=== PATIENT | female | born 1955 | race Caucasian/White ===

== ENCOUNTER 2018-09-27 13:42 | Observation (INO) | payer OTHER ==
[2018-09-27 13:50] VITALS: BMI 33.0
--- NOTE | 2018-09-27 14:28 | PDOC ---
History of Present Illness - General Chief Complaint: Chest Pain Stated Complaint: HIGH BLOOD PRESSURE Time Seen by Provider: 09/27/18 14:21 - History of Present Illness Initial Comments: 09/27/18 14:25 63 yo F with h/o HTN, Vertigo, Chiari Malformation, DM, GERD who p/w chest pain at rest, Dot[place]. Patient reports acute onset of epigastria and left sided chest pain at rest beginning yesterday evening, radiating to left sided jaw/ear, and left shoulder/arm. Also endorses acute onset of diffuse dull hedache typical of prior headaches. No identifiable triggers or alleviators. Also endorses 2 weeks of intermittent lightheadedness, with blurry vision change, occurring randomly and resolving spontaneously, lasting for seconds to minutes. States that lightheaded feeling is different from vertigo/spinning sensation. Patient denies palpitations, wheezing, orthopena, PND, leg swelling/pain, N/V, F,C, urinary complaints, hematuria, BPR, abdominal pain, diarrhea, weakness, sensory changes. PMHx: as noted above. f/w cardiology Dr. Bergeron. Denies h/o ACs/TN, stent placement, CABG, TIA/CVA, PE/DVT. ROS: as noted Allergies: NKDA PMD: Мария Androne Neurology: Dr. Gunn Past History - Past Medical History Allergies/Adverse Reactions: Allergies Allergy/AdvReac Type Severity Reaction Status Date / Time No Known Drug Allergies Allergy Verified 09/27/18 13:50 Home Medications: Ambulatory Orders Acetaminophen [Tylenol .Regular Strength -] 650 mg PO Q6H PRN #0 tablet Aspirin [ASA -] 81 mg PO HS #0 tab.chew 01/01/14 Levothyroxine [Synthroid -] 100 mcg PO DAILY@0700 #0 tablet 01/01/14 Metoprolol Succinate [Toprol XL -] 50 mg PO DAILY #0 tab.sr.24h 01/01/14 Simvastatin [Zocor -] 40 mg PO HS #0 tablet 01/01/14 metFORMIN HCL [Glucophage -] 500 mg PO BIDAC #0 tablet 01/01/14 Ibuprofen [Motrin -] 800 mg PO TID #6 tablet 03/29/14 Losartan Potassium 100 mg PO ASDIR 09/27/18 Anemia: Yes Asthma: No Cancer: No Cardiac Disorders: No CVA: No COPD: No CHF: No Dementia: (arnold-chiari malformation) Diabetes: Yes (NIDDM) GI Disorders: Yes (internal hemorrhoids) Disorders: No HTN: Yes Hypercholesterolemia: Yes Liver Disease: No Seizures: No Thyroid Disease: Yes (hypothyroid) - Surgical History Abdominal Surgery: Yes (tummy tuck) Appendectomy: No Cardiac Surgery: No Cholecystectomy: No Lung Surgery: No Neurologic Surgery: Yes (chiari malformation repair) Orthopedic Surgery: Yes (neck surgery) - Suicide/Smoking/Psychosocial Hx Smoking Status: No Smoking History: Former smoker Have you smoked in the past 12 months: No Number of Cigarettes Smoked Daily: 0 If you are a former smoker, when did you quit?: 25 years ago Information on smoking cessation initiated: No Hx Alcohol Use: No Drug/Substance Use Hx: No Substance Use Type: None Hx Substance Use Treatment: No Review of Systems - Review of Systems Comments:: 09/27/18 14:26 GENERAL/CONSTITUTIONAL: No fever or chills. No weakness. HEAD, EYES, EARS, NOSE AND THROAT: No change in vision. No ear pain or discharge. No sore throat. CARDIOVASCULAR: No chest pain or shortness of breath RESPIRATORY: No cough, wheezing, or hemoptysis. GASTROINTESTINAL: No nausea, vomiting, diarrhea or constipation. GENITOURINARY: No dysuria, frequency, or change in urination. MUSCULOSKELETAL: No joint or muscle swelling or pain. No neck or back pain. SKIN: No rash NEUROLOGIC: No headache, vertigo, loss of consciousness, or change in strength/ sensation. ENDOCRINE: No increased thirst. No abnormal weight change HEMATOLOGIC/LYMPHATIC: No anemia, easy bleeding, or history of blood clots. ALLERGIC/IMMUNOLOGIC: No hives or skin allergy. *Physical Exam - Vital Signs Last Vital Signs Temp Pulse Resp BP Pulse Ox 97.8 F 74 18 176/96 H 99 09/27/18 13:46 09/27/18 13:46 09/27/18 13:46 09/27/18 13:46 09/27/18 13:46 - Physical Exam Comments: 09/27/18 14:26 GENERAL: Awake, alert, and fully oriented, in no acute distress HEAD: No signs of trauma, normocephalic, atraumatic EYES: PERRLA, EOMI, sclera anicteric, conjunctiva clear ENT: Auricles normal inspection, hearing grossly normal, nares patent, oropharynx clear without exudates. Moist mucosa NECK: Normal ROM, supple, no lymphadenopathy, JVD, or masses LUNGS: No distress, speaks full sentences, clear to auscultation bilaterally HEART: Regular rate and rhythm, normal S1 and S2, no murmurs, rubs or gallops, peripheral pulses normal and equal bilaterally. ABDOMEN: Soft, nontender, normoactive bowel sounds. No guarding, no rebound. No masses EXTREMITIES : Normal inspection, Normal range of motion, no edema. No clubbing or cyanosis. NEUROLOGICAL: Cranial nerves II through XII grossly intact. Normal speech, normal gait, no focal sensorimotor deficits SKIN: Warm, Dry, normal turgor, no rashes or lesions noted Moderate Sedation - Procedure Monitoring Vital Signs: Procedure Monitoring Vital Signs Temperature 97.8 F 09/27/18 13:46 Pulse Rate 74 09/27/18 13:46 Respiratory Rate 18 09/27/18 13:46 Blood Pressure 176/96 H 09/27/18 13:46 O2 Sat by Pulse Oximetry (%) 99 09/27/18 13:46 Heart Score/ECG Review - History History: Moderately suspicious - Electrocardiogram EKG: Non specific repolarization disturbance - Age Age: 45-65 - Risk Factors Risk Factors Heart Score: Yes Hx Hypercholesterolemia, Yes Hx Hypertension, Yes Hx Diabetes, Yes Positive family hx of cardiac disease, Yes Hx Obesity Based on the list above the patient has:: >/=3 risk factors or Hx atherosclerotic disease - Troponin Troponin: </= normal limit - Score Heart Score - Total: 5 ED Treatment Course - LABORATORY CBC & Chemistry Diagram: 09/27/18 15:00 09/27/18 15:00 Medical Decision Making - Medical Decision Making 09/27/18 14:27 63 yo F with h/o HTN, Vertigo, Chiari Malformation, DM, GERD who p/w acute onset of epigastria/left sided chest pain at rest radiating to left sided jaw/ ear, and left shoulder/arm x 1 day. + 2 weeks of intermittent lightheadedness, with blurry vision change. BP 176/96, vitals wnl, AF, A&Ox3. Physical exam unremarkable. Denies palpitations, wheezing, orthopena, PND, leg swelling/pain, N/V, F,C, urinary complaints, hematuria, BPR, abdominal pain, diarrhea, weakness , sensory changes. ACS/MO r/o. 09/27/18 15:34 Ed course: EKG: NSR with absent ALEKSANDR, STD. Normal interval duration and axis. Nml R wave progression. Absent Q waves. 09/27/18 15:50 CBC,CMP: Unremarkable Trop: Neg 09/27/18 15:56 Heart score 5 09/27/18 16:35 ASA 162 mg Patient endorsed to Dr. Liz Zambrano. Admit tele/obs *DC/Admit/Observation/Transfer Diagnosis at time of Disposition: Chest pain at rest, Tachycardia, Heart palpitations - Discharge Dispostion Condition at time of disposition: Stable Decision to Admit order: Yes - Referrals Referrals: Мария Reyes [Primary Care Provider] - - Patient Instructions Printed Discharge Instructions: DI for Atypical Chest Pain Additional Instructions: Please return to the emergency department with any new or worsening symptoms or concerns. Please follow up with your primary care physician within 72 hours. - Post Discharge Activity - Attestations Physician Attestion: 09/27/18 14:27 I attest to the information provided in this note.
--- NOTE | 2018-09-27 15:16 | PDOC ---
Attending Attestation - Resident Resident Name: Quincy Pike - ED Attending Attestation I have performed the following: I have examined & evaluated the patient, The case was reviewed & discussed with the resident, I agree w/resident's findings & plan, Exceptions are as noted - HPI HPI: 09/27/18 15:31 see below - Physicial Exam PE: 09/27/18 15:27 GENERAL: The patient is awake, alert, and fully oriented, Nontoxic - in no acute distress. HEAD: Normocephalic, atraumatic. EYES: extraocular movements intact, sclera anicteric, conjunctiva clear. ENT: Normal voice, Moist mucous membranes. NECK: Normal range of motion, supple LUNGS: Breath sounds equal, clear to auscultation bilaterally. No wheezes, no rhonchi, no rales. HEART: Regular rate and rhythm, normal S1 and S2 without murmur, rub or gallop. ABDOMEN: Soft, nontender, normoactive bowel sounds. No guarding, no rebound. . No CVA tenderness EXTREMITIES: Normal range of motion, no edema. pulses symmetric in upper and lower extremities NEUROLOGICAL: No facial assymetry, Normal speech, PSYCH: Normal mood, normal affect. SKIN: Warm, Dry, normal turgor, - Medical Decision Making 09/27/18 15:27 63-year-old female history of hypertension, vertigo, Chiari malformation status post surgical repair, diabetes, GERD presents with a complaint of chest pain. Patient states that for the past 2 weeks she has felt unwell felt mild lightheadedness, mild headache that felt like ants on her scalp, however last night she began to develop some chest pain and shortness of breath that she describes as pressure-like in the mid epigastrium radiating up to her left jaw and left arm - the pain was intermittent there was associated nausea and dyspnea on exertion. 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 She did take several baby aspirin prior to arrival Patient denies any smoking or illicit or recreational drug use. Differential for this patient's symptoms includes possible metabolic derangements, ACS, anemia Will obtain CBC, CMP, EKG, patient was placed on rn cardiac anticipate observation for rule out ACS Heart Score/ECG Review - ECG Impressions Comment:: 09/27/18 15:30 Twelve-lead EKG was performed and reviewed by me. There is normal sinus rhythm with a normal rate. Rate of 67 The axis is normal. The intervals are normal. There is normal R wave progression There are no ST or T wave abnormalities. Impression: Normal twelve-lead EKG
[2018-09-27 15:19] LABS: BASO % 0.6 % (0-2.0); EOS % 1.8 % (0-4.5); HEMATOCRIT 36.9 % (32.4-45.2); HEMOGLOBIN 12.4 GM/dL (10.7-15.3); LYMPH % 31.3 % (8-40); MCH 26.9 pg (25.7-33.7); MCHC 33.6 g/dl (32.0-36.0); MEAN CELL VOLUME 80.2 fl (80-96); MEAN PLT VOLUME 9.2 fl (7.5-11.1); MONO % 4.6 % (3.8-10.2); NEUT % 61.7 % (42.8-82.8); PLATELET COUNT 239 K/MM3 (134-434); RBC 4.61 M/mm3 (3.60-5.2); WHITE BLOOD COUNT 8.4 K/mm3 (4.0-10.0)
[2018-09-27] MEDS ORDERED: ACETAMINOPHEN 325 MG TABLET (FP) PO ONE (15:26)
[2018-09-27] MEDS ORDERED: ACETAMINOPHEN 325 MG TABLET (FP) ONE (15:28)
[2018-09-27 15:34] LABS: ALK PHOS 94 U/L (45-117); ANION GAP 8 MMOL/L (8-16); BILIRUBIN,TOTAL 0.4 mg/dL (0.2-1); BLOOD UREA NITROGEN 11 mg/dL (7-18); CALCIUM 9.4 mg/dL (8.5-10.1); CHLORIDE 109 mmol/L (98-107); CO2 24 mmol/L (21-32); CREATININE 0.8 mg/dL (0.55-1.3); GLUCOSE,RANDOM 80 mg/dL (74-106); POTASSIUM 4.3 mmol/L (3.5-5.1); SGOT/AST 31 U/L (15-37); SGPT/ALT 32 U/L (13-61); SODIUM 141 mmol/L (136-145); TOT PROT 7.6 g/dl (6.4-8.2)
[2018-09-27 15:36] LABS: LIPASE 180 U/L (73-393)
[2018-09-27] MEDS ORDERED: ASPIRIN 81 MG CHEWABLE TABLETS PO ONE (16:35)
--- NOTE | 2018-09-27 16:41 | PN ---
Teaching Attending Note Name of Resident: Jonathan Crow ATTENDING PHYSICIAN STATEMENT I saw and evaluated the patient. I reviewed the resident's note and discussed the case with the resident. I agree with the resident's findings and plan as documented. SUBJECTIVE: Patient is a 63yo female with PMHx of HTN, vertigo, Arnold Chiari Malformation, DM, hypothyroidism, presented to the ED with worsening chest pain that started last night. OBJECTIVE: Initial Vital Signs Temp Pulse Resp BP Pulse Ox 97.8 F 74 18 176/96 H 99 09/27/18 13:46 09/27/18 13:46 09/27/18 13:46 09/27/18 13:46 09/27/18 13:46 Vital Signs Temperature 98.6 F 09/27/18 16:30 Pulse Rate 86 09/27/18 16:30 Respiratory Rate 17 09/27/18 16:30 Blood Pressure 136/80 09/27/18 16:30 O2 Sat by Pulse Oximetry (%) 100 09/27/18 16:30 GENERAL: The patient is awake, alert, and fully oriented, in no acute distress. HEAD: Normocephalic, atraumatic. EYES: extraocular movements intact, sclera anicteric, conjunctiva clear. ENT: Moist mucous membranes. NECK: Normal range of motion, supple LUNGS: Breath sounds equal, clear to auscultation bilaterally. No wheezes, no rhonchi, no rales. HEART: Regular rate and rhythm, normal S1 and S2 without murmur, rub or gallop. ABDOMEN: Soft, nontender, normoactive bowel sounds. No guarding, no rebound. . No CVA tenderness EXTREMITIES: Normal range of motion, no edema. pulses are positive . NEUROLOGICAL: cn 2-12 grossly intact , Normal speech, PSYCH: Normal mood, normal affect. SKIN: Warm, Dry, normal turgor. CBCD WBC 8.4 K/mm3 (4.0-10.0) 09/27/18 15:00 RBC 4.61 M/mm3 (3.60-5.2) 09/27/18 15:00 Hgb 12.4 GM/dL (10.7-15.3) 09/27/18 15:00 Hct 36.9 % (32.4-45.2) 09/27/18 15:00 MCV 80.2 fl (80-96) 09/27/18 15:00 MCHC 33.6 g/dl (32.0-36.0) 09/27/18 15:00 RDW 15.0 % (11.6-15.6) 09/27/18 15:00 Plt Count 239 K/MM3 (134-434) 09/27/18 15:00 MPV 9.2 fl (7.5-11.1) 09/27/18 15:00 CMP Sodium 141 mmol/L (136-145) 09/27/18 15:00 Potassium 4.3 mmol/L (3.5-5.1) 09/27/18 15:00 Chloride 109 mmol/L (98-107) H 09/27/18 15:00 Carbon Dioxide 24 mmol/L (21-32) 09/27/18 15:00 Anion Gap 8 MMOL/L (8-16) 09/27/18 15:00 BUN 11 mg/dL (7-18) 09/27/18 15:00 Creatinine 0.8 mg/dL (0.55-1.3) 09/27/18 15:00 Creat Clearance w eGFR 72.92 (>60) 09/27/18 15:00 Random Glucose 80 mg/dL (74-106) 09/27/18 15:00 Calcium 9.4 mg/dL (8.5-10.1) 09/27/18 15:00 Total Bilirubin 0.4 mg/dL (0.2-1) 09/27/18 15:00 AST 31 U/L (15-37) 09/27/18 15:00 ALT 32 U/L (13-61) 09/27/18 15:00 Alkaline Phosphatase 94 U/L (45-117) 09/27/18 15:00 Total Protein 7.6 g/dl (6.4-8.2) 09/27/18 15:00 Albumin 4.0 g/dl (3.4-5.0) 09/27/18 15:00 CARDIAC ENZYMES Creatine Kinase 66 U/L (26-192) 09/27/18 15:00 Troponin I < 0.02 ng/ml (0.00-0.05) 09/27/18 15:00 Home Medications Medication Instructions Recorded Acetaminophen [Tylenol .Regular 650 mg PO Q6H PRN #0 tablet 01/01/14 Strength -] Aspirin [ASA -] 81 mg PO HS #0 tab.chew 01/01/14 Levothyroxine [Synthroid -] 100 mcg PO DAILY@0700 #0 tablet 01/01/14 Metoprolol Succinate [Toprol XL -] 50 mg PO DAILY #0 tab.sr.24h 01/01/14 Simvastatin [Zocor -] 40 mg PO HS #0 tablet 01/01/14 metFORMIN HCL [Glucophage -] 500 mg PO BIDAC #0 tablet 01/01/14 Ibuprofen [Motrin -] 800 mg PO TID #6 tablet 03/29/14 Losartan Potassium 100 mg PO ASDIR 09/27/18 ASSESSMENT AND PLAN: Patient is a 63yo female with PMHx of HTN, Arnold Chiari Malformation, vertigo, DM, hypothyroidism presented to the ED with complaints of L sided chest pain with radiation to the arm and jaw, associated with a 2 week history of blurred vision and dizziness #Acute L sided Chest Pain r/o ACS; EKG was normal, trop x1 negative ,trend troponins with repeat EKGS tylenol for headache PRN for pain, Dr. Roger consulted, tele monitoring, monitor vitals #HTN continue home meds, monitor #Arnold-chiari Malformation s/p surgery (2005); Dr. Vidal is patients neuro; consulted as per patient request given blurred vision and headaches (likely related to elevated BP) #DM holding patients metformin; ISS, BGMS ACHS #Hypothyroidism:f/u TSH and free t4, continue synthroid 100mcg daily DVT PX: scds, lovenox
[2018-09-27] MEDS ORDERED: ASPIRIN 81 MG CHEWABLE TABLETS ONE ×2 (16:44→19:36)
[2018-09-27] MEDS ORDERED: SODIUM CHLORIDE 0.45% 1,000 ML IV SCH (17:15)
--- NOTE | 2018-09-27 17:17 | HP ---
CHIEF COMPLAINT: chest pain at rest PCP:Dr. Reyes, Cardio: Dr. Roger, Neuro: Dr. Vidal HISTORY OF PRESENT ILLNESS: 63 y/o female with PMH of HTN, vertigo, Arnold Chiari Malformation, DM, hypothyroidism, presented to the ED with worsening chest pain that started last night. Of note, patient has been having for the past 2 weeks blurred vision and associated lightheadedness/headaches, however, her chest pain started yesterday. She was laying in bed when the pain started it she said it was midsternal with radiation to the left arm and up to the jaw- at its worse was a 10/10. She has never had this before- it wasn't associated with exertion or positional. She had taken her pressures multiple times with her systolics being in the 180's and diastolics being in the 100's. she took an extra metoprolol thinking that would resolve her symptoms but it did not. she at first went to urgent care then was sent here. she denies any recent illlnesses, no nausea/ vomiting/fevers or chills. she follows up with dr. roger for cardiology- states her last echo and stress test were one year ago and were both normal.patient states also today she was very constipated and was straining very hard and almost passed out- she has never had a syncopal episode in the past, ER course was notable for: (1)BP on admission was 176/96 (2)trop neg x1; EKG shows NSR; no ST changes, no q waves; normal interval rate 67 (3)given asa x1 and tylenol Recent Travel: none PAST MEDICAL HISTORY: see above PAST SURGICAL HISTORY: chiari surgeyr 2005; tummy tuck; cervical disc surgery 20 years ago Social History: Smoking:quit 30 years ago Alcohol:denies Drugs: denies Family History:significant cardiac history: 3 of her older sisters have had stents, SC's, open heart surgeries in their late 60's-early 70s Allergies No Known Drug Allergies Allergy (Verified 09/27/18 13:50) HOME MEDICATIONS: Home Medications Medication Instructions Recorded Acetaminophen [Tylenol .Regular 650 mg PO Q6H PRN #0 tablet 01/01/14 Strength -] Aspirin [ASA -] 81 mg PO HS #0 tab.chew 01/01/14 Levothyroxine [Synthroid -] 100 mcg PO DAILY@0700 #0 tablet 01/01/14 Metoprolol Succinate [Toprol XL -] 50 mg PO DAILY #0 tab.sr.24h 01/01/14 Simvastatin [Zocor -] 40 mg PO HS #0 tablet 01/01/14 metFORMIN HCL [Glucophage -] 500 mg PO BIDAC #0 tablet 01/01/14 Ibuprofen [Motrin -] 800 mg PO TID #6 tablet 03/29/14 Losartan Potassium 100 mg PO ASDIR 09/27/18 REVIEW OF SYSTEMS CONSTITUTIONAL: Absent: fever, chills, diaphoresis, generalized weakness, malaise, loss of appetite, weight change HEENT: Present: visual changes Absent: rhinorrhea, nasal congestion, throat pain, throat swelling, difficulty swallowing, mouth swelling, ear pain, eye pain, CARDIOVASCULAR: Present:chest pain, lightheadedness Absent: syncope, palpitations, irregular heart rate, peripheral edema RESPIRATORY: Absent: cough, shortness of breath, dyspnea with exertion, orthopnea, wheezing, stridor, hemoptysis GASTROINTESTINAL: Absent: abdominal pain, abdominal distension, nausea, vomiting, diarrhea, constipation, melena, hematochezia GENITOURINARY: Absent: dysuria, frequency, urgency, hesitancy, hematuria, flank pain, genital pain MUSCULOSKELETAL: Absent: myalgia, arthralgia, joint swelling, back pain, neck pain SKIN: Absent: rash, itching, pallor HEMATOLOGIC/IMMUNOLOGIC: Absent: easy bleeding, easy bruising, lymphadenopathy, frequent infections ENDOCRINE: Absent: unexplained weight gain, unexplained weight loss, heat intolerance, cold intolerance NEUROLOGIC: Present: headache Absent:focal weakness or paresthesias, dizziness, unsteady gait, seizure, mental status changes, bladder or bowel incontinence PSYCHIATRIC: Absent: anxiety, depression, suicidal or homicidal ideation, hallucinations. PHYSICAL EXAMINATION Vital Signs - 24 hr 09/27/18 09/27/18 13:46 16:30 Temperature 97.8 F 98.6 F Pulse Rate 74 Pulse Rate [ 86 Apical] Respiratory 18 17 Rate Blood Pressure 176/96 H Blood Pressure 136/80 [Right Arm] O2 Sat by Pulse 99 100 Oximetry (%) GENERAL: Awake, alert, and fully oriented, in no acute distress. EYES: PEERLA; EOMI; no scleral icterus NECK:no JVD; no lymphadenopathy. LUNGS: CTA B/L; no rales, rhonchi or wheezing. HEART: Regular rate and rhythm, normal S1 and S2 without murmur, rub or gallop. ABDOMEN:soft; non-tender; non-distended +BS in all 4 quadrants MUSCULOSKELETAL: Normal range of motion at all joints. No bony deformities or tenderness. No CVA tenderness. EXTREMITIES: warm; well-perfused; no clubbing/cyanosis or edema NEUROLOGICAL: Cranial nerves II-XII intact. Normal speech. strength 5/5UE (b/l) , 5/5 LE (b/l) sensation intact throughout PSYCHIATRIC: Cooperative. Good eye contact. Appropriate mood and affect. SKIN: Warm, dry, normal turgor, no rashes or lesions noted, normal capillary refill. Laboratory Results - last 24 hr 09/27/18 09/27/18 09/27/18 15:00 15:00 15:00 WBC 8.4 RBC 4.61 Hgb 12.4 Hct 36.9 MCV 80.2 MCH 26.9 MCHC 33.6 RDW 15.0 Plt Count 239 MPV 9.2 Absolute Neuts (auto) 5.2 Neutrophils % 61.7 Lymphocytes % 31.3 Monocytes % 4.6 Eosinophils % 1.8 Basophils % 0.6 Nucleated RBC % 0 Sodium 141 Potassium 4.3 Chloride 109 H Carbon Dioxide 24 Anion Gap 8 BUN 11 Creatinine 0.8 Creat Clearance w eGFR 72.92 Random Glucose 80 Calcium 9.4 Total Bilirubin 0.4 AST 31 ALT 32 Alkaline Phosphatase 94 Creatine Kinase 66 Troponin I < 0.02 Total Protein 7.6 Albumin 4.0 Lipase 180 ASSESSMENT/PLAN: 63 y/o female with PMH of HTN, Arnold Chiari Malformation, vertigo, DM, hypothyroidism presented to the ED with complaints of L sided chest pain with radiation to the arm and jaw, associated with a 2 week history of blurred vision and dizziness #L sided Chest Pain r/o ACS EKG was normal with one negative trop thus far -trend troponins with repeat EKGS -tylenol PRN for pain -Dr. Roger consulted -tele monitoring -monitor vitals and hemodynamics #HTN patient states her pressures have been high despite taking meds -currently on troprol Xl 50 and Cozaar 100 -? need to increase meds -Dr. Mascitelli consulted #Chiari Malformation surgery was in 2005 -Dr. Vidal is patients neuro; consulted as per patient request given blurred vision and headaches (likely related to elevated BP) #DM holding patients metformin -ISS -BGMS ACHS #Hypothyroidism -f/u TSH and free t4 c/w synthroid 100mcg daily F/E/N 07/15 NS @75mls monitor electrolytes sodium controlled diet DVT PPX: lovenox 40 SQ daily Problem List - Problem (1) HTN (hypertension) Code(s): I10 - ESSENTIAL (PRIMARY) HYPERTENSION (2) Diabetes Code(s): E11.9 - TYPE 2 DIABETES MELLITUS WITHOUT COMPLICATIONS (3) Hypothyroidism Code(s): E03.9 - HYPOTHYROIDISM, UNSPECIFIED (4) Chiari malformation Code(s): AIZ0068 - (5) Chest pain at rest Code(s): R07.9 - CHEST PAIN, UNSPECIFIED Visit type - Emergency Visit Emergency Visit: Yes Care time: The patient presented to the Emergency Department on the above date and was hospitalized for further evaluation of their emergent condition. - New Patient This patient is new to me today: Yes Date on this admission: 09/27/18 - Critical Care Critical Care patient: No
[2018-09-27] MEDS ORDERED: ACETAMINOPHEN 325 MG TABLET (FP) PO PRN (17:36)
[2018-09-27] MEDS ORDERED: LOSARTAN POTASSIUM 50 MG TABLET (FP) ONE (18:04)
[2018-09-27] MEDS: LOSARTAN POTASSIUM 50 MG TABLET (FP) PO SCH (18:07)
[2018-09-27] MEDS ORDERED: IBUPROFEN 400 MG TABLET (FP) PO PRN ×2 (18:17→18:19)
[2018-09-27] MEDS ORDERED: IBUPROFEN 400 MG TABLET (FP) PO ONE (18:42)
[2018-09-27] MEDS ORDERED: ATORVASTATIN CA 10 MG TABLET (FP) ONE (19:36)
[2018-09-27] MEDS: ATORVASTATIN CA 20 MG TABLET (FP) PO SCH (21:20)
[2018-09-27] MEDS: ASPIRIN 81 MG CHEWABLE TABLETS PO SCH (21:20)
[2018-09-27] MEDS: INSULIN SLIDING SCALE (NOVOLOG) 1 VIAL SQ SCH (21:25)
[2018-09-27] MEDS ORDERED: GABAPENTIN 100 MG CAPSULE (FP) ONE (23:01)
[2018-09-27] MEDS: GABAPENTIN 300 MG CAPSULE (FP) PO SCH (23:20)
[2018-09-28 05:46] LABS: EOS % 2.5 % (0-4.5); HEMATOCRIT 32.5 % (32.4-45.2); HEMOGLOBIN 10.8 GM/dL (10.7-15.3); LYMPH % 43.6 % (8-40); MCH 26.4 pg (25.7-33.7); MCHC 33.3 g/dl (32.0-36.0); MEAN CELL VOLUME 79.1 fl (80-96); MEAN PLT VOLUME 8.6 fl (7.5-11.1); MONO % 7.1 % (3.8-10.2); NEUT % 45.8 % (42.8-82.8); PLATELET COUNT 204 K/MM3 (134-434); RBC 4.12 M/mm3 (3.60-5.2); RDW 15.4 % (11.6-15.6); WHITE BLOOD COUNT 6.5 K/mm3 (4.0-10.0)
[2018-09-28] MEDS ORDERED: LEVOTHYROXINE NA 25 MCG TABLET (FP) ONE (05:58)
[2018-09-28 06:03] LABS: ALBUMIN 3.3 g/dl (3.4-5.0); ALK PHOS 78 U/L (45-117); ANION GAP 5 MMOL/L (8-16); BILIRUBIN,TOTAL 0.4 mg/dL (0.2-1); BLOOD UREA NITROGEN 18 mg/dL (7-18); CALCIUM 8.5 mg/dL (8.5-10.1); CHLORIDE 111 mmol/L (98-107); CO2 25 mmol/L (21-32); CREATININE 0.9 mg/dL (0.55-1.3); GLUCOSE,RANDOM 90 mg/dL (74-106); MAGNESIUM 1.7 mg/dL (1.8-2.4); PHOSPHOROUS 4.1 mg/dL (2.5-4.9); POTASSIUM 4.2 mmol/L (3.5-5.1); SGOT/AST 17 U/L (15-37); SGPT/ALT 26 U/L (13-61); SODIUM 141 mmol/L (136-145); TOT PROT 6.3 g/dl (6.4-8.2)
[2018-09-28] MEDS ORDERED: MAGNESIUM OXIDE 400 MG TABLET (FP) PO ONE (06:08)
[2018-09-28] MEDS ORDERED: MAGNESIUM OXIDE 400 MG TABLET (FP) ONE (06:14)
[2018-09-28] MEDS: INSULIN SLIDING SCALE (NOVOLOG) 1 VIAL SQ SCH ×4 (06:25→21:40)
[2018-09-28] MEDS: LEVOTHYROXINE NA 100 MCG TABLET (FP) PO SCH (06:25)
--- NOTE | 2018-09-28 09:10 | CON.CARD ---
Consult Consult Specialty:: Cardiology - History of Present Illness History of Present Illness: 63 y/o female with PMH of HTN, vertigo, Arnold Chiari Malformation, DM, hypothyroidism, presented to the ED with worsening chest pain that started last night. Of note, patient has been having for the past 2 weeks blurred vision and associated lightheadedness/headaches, however, her chest pain started yesterday. She was laying in bed when the pain started it she said it was midsternal with radiation to the left arm and up to the jaw- at its worse was a 10/10. She has never had this before- it wasn't associated with exertion or positional. She had taken her pressures multiple times with her systolics being in the 180's and diastolics being in the 100's. she took an extra metoprolol thinking that would resolve her symptoms but it did not. she at first went to urgent care then was sent here. she denies any recent illlnesses, no nausea/ vomiting/fevers or chills. she follows up with dr. longo for cardiology- states her last echo and stress test were one year ago and were both normal.patient states also today she was very constipated and was straining very hard and almost passed out- she has never had a syncopal episode in the past, PMH Major events surgery for Chiari malformation 2006 Ongoing medical problems vertigo ADD overweight anxiety chronic constipation - History Source History Provided By: Patient, Medical Record - Alcohol/Substance Use Hx Alcohol Use: No - Smoking History Smoking history: Former smoker Have you smoked in the past 12 months: No Aproximately how many cigarettes per day: 0 If you are a former smoker, when did you quit?: 25 years ago Home Medications - Allergies Allergies/Adverse Reactions: Allergies Allergy/AdvReac Type Severity Reaction Status Date / Time No Known Drug Allergies Allergy Verified 09/27/18 13:50 - Home Medications Home Medications: Ambulatory Orders Acetaminophen [Tylenol .Regular Strength -] 650 mg PO Q6H PRN #0 tablet Aspirin [ASA -] 81 mg PO HS #0 tab.chew 01/01/14 Levothyroxine [Synthroid -] 100 mcg PO DAILY@0700 #0 tablet 01/01/14 Metoprolol Succinate [Toprol XL -] 50 mg PO DAILY #0 tab.sr.24h 01/01/14 Simvastatin [Zocor -] 40 mg PO HS #0 tablet 01/01/14 metFORMIN HCL [Glucophage -] 500 mg PO BIDAC #0 tablet 01/01/14 Gabapentin [Neurontin] 300 mg PO BID 09/27/18 Losartan Potassium 100 mg PO DAILY 09/27/18 Ibuprofen 800 mg PO TID PRN 09/28/18 Review of Systems - Review of Systems Constitutional: reports: No Symptoms Eyes: reports: No Symptoms HENT: reports: No Symptoms Neck: reports: No Symptoms Cardiovascular: reports: Chest Pain Gastrointestinal: reports: No Symptoms Genitourinary: reports: No Symptoms Breasts: reports: No Symptoms Reported Musculoskeletal: reports: No Symptoms Integumentary: reports: No Symptoms Neurological: reports: No Symptoms Endocrine: reports: No Symptoms Hematology/Lymphatic: reports: No Symptoms Psychiatric: reports: No Symptoms Vital Signs: Vital Signs Temperature 98.1 F 09/28/18 06:22 Pulse Rate 61 09/28/18 06:22 Respiratory Rate 18 09/28/18 06:22 Blood Pressure 142/76 09/28/18 06:22 O2 Sat by Pulse Oximetry (%) 98 09/28/18 06:22 Constitutional: Yes: Well Nourished, No Distress, Calm Eyes: Yes: WNL, Conjunctiva Clear, EOM Intact HENT: Yes: WNL, Atraumatic, Normocephalic Neck: Yes: WNL, Supple, Trachea Midline Respiratory: Yes: WNL, Regular, CTA Bilaterally Gastrointestinal: Yes: WNL, Normal Bowel Sounds Renal/: Yes: WNL Cardiovascular: Yes: WNL, Regular Rate and Rhythm Musculoskeletal: Yes: WNL Extremities: Yes: WNL Integumentary: Yes: WNL Neurological: Yes: WNL, Alert, Oriented ...Motor Strength: WNL Psychiatric: Yes: WNL, Alert, Oriented - Other Data Labs, Other Data: CBC, BMP 09/28/18 05:10 09/28/18 05:10 Troponin, BNP 09/27/18 09/27/18 09/28/18 15:00 21:30 03:20 Troponin I < 0.02 < 0.02 < 0.02 Troponin, BNP 09/27/18 09/27/18 09/28/18 15:00 21:30 03:20 Troponin I < 0.02 < 0.02 < 0.02 Imaging - Results Chest X-ray: Image Reviewed (no i/e) EKG: Image Reviewed (sr wnl) Problem List - Problems (1) Chest pain at rest Code(s): R07.9 - CHEST PAIN, UNSPECIFIED (2) Chiari malformation Code(s): CED8599 - (3) Diabetes Code(s): E11.9 - TYPE 2 DIABETES MELLITUS WITHOUT COMPLICATIONS (4) HTN (hypertension) Code(s): I10 - ESSENTIAL (PRIMARY) HYPERTENSION (5) Heart palpitations Code(s): R00.2 - PALPITATIONS (6) Hypothyroidism Code(s): E03.9 - HYPOTHYROIDISM, UNSPECIFIED (7) Pain Code(s): R52 - PAIN, UNSPECIFIED (8) Tachycardia Code(s): R00.0 - TACHYCARDIA, UNSPECIFIED (9) Acid reflux Code(s): K21.9 - GASTRO-ESOPHAGEAL REFLUX DISEASE WITHOUT ESOPHAGITIS (10) Esophageal spasm Code(s): K22.4 - DYSKINESIA OF ESOPHAGUS Assessment/Plan 63 y/o female with PMH of HTN, vertigo, Arnold Chiari Malformation, DM, hypothyroidism, presented to the ED with worsening chest pain that started last night. ekg wnl ce neg plan telemetry echo stress test when stable check lipids dvt plx
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
[2018-09-28] MEDS ORDERED: DICLOFENAC SODIUM 75 MG TABLET.DR PO SCH (10:00)
[2018-09-28] MEDS: GABAPENTIN 300 MG CAPSULE (FP) PO SCH ×2 (11:54→21:41)
[2018-09-28] MEDS: LOSARTAN POTASSIUM 50 MG TABLET (FP) PO SCH (11:54)
[2018-09-28] MEDS: ENOXAPARIN NA (PORCINE) 40 MG/0.4 ML DISP.SYRIN SQ SCH (12:04)
--- NOTE | 2018-09-28 14:37 | PN ---
Physical Exam: SUBJECTIVE: Patient seen and examined at bedside- no acute events overnight patient states she is feeling better her chest pain is improving; denies SOB/N/ V fevers or chills OBJECTIVE: Vital Signs Period Temp Pulse Resp BP Sys/Wiggins Pulse Ox Last 24 Hr 97.3 F-98.6 F 60-86 16-18 114-142/47-80 95-100 GENERAL: The patient is awake, alert, and fully oriented, in no acute distress. EYES: PEERLA; EOMI; no scleral icterus NECK: no JVD; no lymphadenopathy. LUNGS: CTA B/L; no rales, rhonchi or wheezing. HEART: Regular rate and rhythm, S1, S2 without murmur, rub or gallop. ABDOMEN: Soft, nontender, nondistended, normoactive bowel sounds, no guarding, no rebound, no hepatosplenomegaly, no masses. EXTREMITIES: 2+ pulses, warm, well-perfused, no edema. PSYCH: Normal mood, normal affect. SKIN: Warm, dry, normal turgor, no rashes or lesions noted Laboratory Results - last 24 hr 09/27/18 09/27/18 09/27/18 15:00 15:00 15:00 WBC 8.4 RBC 4.61 Hgb 12.4 Hct 36.9 MCV 80.2 MCH 26.9 MCHC 33.6 RDW 15.0 Plt Count 239 MPV 9.2 Absolute Neuts (auto) 5.2 Neutrophils % 61.7 Lymphocytes % 31.3 Monocytes % 4.6 Eosinophils % 1.8 Basophils % 0.6 Nucleated RBC % 0 Sodium 141 Potassium 4.3 Chloride 109 H Carbon Dioxide 24 Anion Gap 8 BUN 11 Creatinine 0.8 Creat Clearance w eGFR 72.92 POC Glucometer Random Glucose 80 Calcium 9.4 Phosphorus Magnesium Total Bilirubin 0.4 AST 31 ALT 32 Alkaline Phosphatase 94 Creatine Kinase 66 Troponin I < 0.02 C-Reactive Protein Total Protein 7.6 Albumin 4.0 Lipase 180 TSH Free T4 09/27/18 09/27/18 09/28/18 21:21 21:30 03:20 WBC RBC Hgb Hct MCV MCH MCHC RDW Plt Count MPV Absolute Neuts (auto) Neutrophils % Lymphocytes % Monocytes % Eosinophils % Basophils % Nucleated RBC % Sodium Potassium Chloride Carbon Dioxide Anion Gap BUN Creatinine Creat Clearance w eGFR POC Glucometer 94 Random Glucose Calcium Phosphorus Magnesium Total Bilirubin AST ALT Alkaline Phosphatase Creatine Kinase Troponin I < 0.02 < 0.02 C-Reactive Protein Total Protein Albumin Lipase TSH Free T4 09/28/18 09/28/18 09/28/18 05:10 05:10 05:10 WBC 6.5 RBC 4.12 Hgb 10.8 Hct 32.5 MCV 79.1 L MCH 26.4 MCHC 33.3 RDW 15.4 Plt Count 204 MPV 8.6 Absolute Neuts (auto) 3.0 Neutrophils % 45.8 D Lymphocytes % 43.6 H D Monocytes % 7.1 Eosinophils % 2.5 Basophils % 1.0 Nucleated RBC % 0 Sodium 141 Potassium 4.2 Chloride 111 H Carbon Dioxide 25 Anion Gap 5 L BUN 18 Creatinine 0.9 Creat Clearance w eGFR 63.65 POC Glucometer Random Glucose 90 Calcium 8.5 Phosphorus 4.1 Magnesium 1.7 L Total Bilirubin 0.4 AST 17 ALT 26 Alkaline Phosphatase 78 Creatine Kinase Troponin I C-Reactive Protein 0.5 H Total Protein 6.3 L Albumin 3.3 L Lipase TSH 2.31 Free T4 0.85 09/28/18 09/28/18 06:22 11:48 WBC RBC Hgb Hct MCV MCH MCHC RDW Plt Count MPV Absolute Neuts (auto) Neutrophils % Lymphocytes % Monocytes % Eosinophils % Basophils % Nucleated RBC % Sodium Potassium Chloride Carbon Dioxide Anion Gap BUN Creatinine Creat Clearance w eGFR POC Glucometer 86 82 Random Glucose Calcium Phosphorus Magnesium Total Bilirubin AST ALT Alkaline Phosphatase Creatine Kinase Troponin I C-Reactive Protein Total Protein Albumin Lipase TSH Free T4 Active Medications Generic Name Dose Route Start Last Admin Trade Name Freq PRN Reason Stop Dose Admin Aspirin 81 mg 09/27/18 22:00 09/27/18 21:20 Asa - PO 81 mg HS RONALDO Administration Atorvastatin Calcium 20 mg 09/27/18 22:00 09/27/18 21:20 Lipitor - PO 20 mg HS RONALDO Administration Diclofenac Sodium 75 mg 09/28/18 10:00 09/28/18 12:05 Voltaren - PO Not Given BID RONALDO Enoxaparin Sodium 40 mg 09/28/18 10:00 09/28/18 12:04 Lovenox - SQ 40 mg DAILY RONALDO Administration Gabapentin 300 mg 09/27/18 23:00 09/28/18 11:54 Neurontin - PO 300 mg BID RONALDO Administration Sodium Chloride 1,000 mls @ 75 mls/hr 09/27/18 17:15 09/27/18 19:35 1/2 Normal Saline IV 75 mls/hr ASDIR RONALDO Administration Insulin Aspart 1 vial 09/27/18 22:00 09/28/18 11:55 Novolog Vial Sliding Scale - SQ Not Given ACHS RONALDO Protocol Levothyroxine Sodium 100 mcg 09/28/18 07:00 09/28/18 06:25 Synthroid - PO 100 mcg DAILY@0700 RONALDO Administration Losartan Potassium 100 mg 09/27/18 17:30 09/28/18 11:54 Cozaar - PO 100 mg DAILY RONALDO Administration Metoprolol Succinate 50 mg 09/28/18 10:00 09/28/18 11:54 Toprol Xl - PO 50 mg DAILY RONALDO Administration ASSESSMENT/PLAN: 63 y/o female with PMH of HTN, Arnold Chiari Malformation, vertigo, DM, hypothyroidism presented to the ED with complaints of L sided chest pain with radiation to the arm and jaw, associated with a 2 week history of blurred vision and dizziness #L sided Chest Pain r/o ACS trops negative times theree -tylenol PRN for pain -Dr. Roger consulted; Dr alves saw patient this AM; going for stress test tomorrow AM -tele monitoring -monitor vitals and hemodynamics #HTN patient states her pressures have been high despite taking meds -currently on troprol Xl 50 and Cozaar 100 -Dr. Roger consulted #Chiari Malformation surgery was in 2005 -Dr Vidal consulted -head/neck CT ordered #DM holding patients metformin -ISS -BGMS ACHS #Hypothyroidism -TSH and free t4 wnl c/w synthroid 100mcg daily F/E/N 1/2 NS @75mls monitor electrolytes sodium controlled diet Problem List - Problems (1) HTN (hypertension) Code(s): I10 - ESSENTIAL (PRIMARY) HYPERTENSION (2) Diabetes Code(s): E11.9 - TYPE 2 DIABETES MELLITUS WITHOUT COMPLICATIONS (3) Hypothyroidism Code(s): E03.9 - HYPOTHYROIDISM, UNSPECIFIED (4) Chiari malformation Code(s): JIN4414 - (5) Chest pain at rest Code(s): R07.9 - CHEST PAIN, UNSPECIFIED Visit type - Emergency Visit Emergency Visit: Yes ED Registration Date: 09/27/18 Care time: The patient presented to the Emergency Department on the above date and was hospitalized for further evaluation of their emergent condition. - New Patient This patient is new to me today: No - Critical Care Critical Care patient: No
--- NOTE | 2018-09-28 20:23 | PN ---
Teaching Attending Note Name of Resident: Liz Zambrano ATTENDING PHYSICIAN STATEMENT I saw and evaluated the patient. I reviewed the resident's note and discussed the case with the resident. I agree with the resident's findings and plan as documented. SUBJECTIVE: Patient has no further chest pain. going for stress test. OBJECTIVE: Vital Signs Temperature 98.5 F 09/28/18 17:34 Pulse Rate 69 09/28/18 17:34 Respiratory Rate 20 09/28/18 17:34 Blood Pressure 140/70 09/28/18 17:34 O2 Sat by Pulse Oximetry (%) 100 09/28/18 14:24 GENERAL: The patient is awake, alert, and fully oriented, in no acute distress. HEAD: Normocephalic, atraumatic. EYES: extraocular movements intact, sclera anicteric, conjunctiva clear. ENT: Moist mucous membranes. NECK: Normal range of motion, supple LUNGS: Breath sounds equal, clear to auscultation bilaterally. No wheezes, no rhonchi, no rales. HEART: Regular rate and rhythm, normal S1 and S2 without murmur, rub or gallop. ABDOMEN: Soft, nontender, normoactive bowel sounds. No guarding, no rebound. . No CVA tenderness EXTREMITIES: Normal range of motion, no edema. pulses are positive . NEUROLOGICAL: cn 2-12 grossly intact , Normal speech, PSYCH: Normal mood, normal affect. SKIN: Warm, Dry, normal turgor. CBCD WBC 6.5 K/mm3 (4.0-10.0) 09/28/18 05:10 RBC 4.12 M/mm3 (3.60-5.2) 09/28/18 05:10 Hgb 10.8 GM/dL (10.7-15.3) 09/28/18 05:10 Hct 32.5 % (32.4-45.2) 09/28/18 05:10 MCV 79.1 fl (80-96) L 09/28/18 05:10 MCHC 33.3 g/dl (32.0-36.0) 09/28/18 05:10 RDW 15.4 % (11.6-15.6) 09/28/18 05:10 Plt Count 204 K/MM3 (134-434) 09/28/18 05:10 MPV 8.6 fl (7.5-11.1) 09/28/18 05:10 CMP Sodium 141 mmol/L (136-145) 09/28/18 05:10 Potassium 4.2 mmol/L (3.5-5.1) 09/28/18 05:10 Chloride 111 mmol/L (98-107) H 09/28/18 05:10 Carbon Dioxide 25 mmol/L (21-32) 09/28/18 05:10 Anion Gap 5 MMOL/L (8-16) L 09/28/18 05:10 BUN 18 mg/dL (7-18) 09/28/18 05:10 Creatinine 0.9 mg/dL (0.55-1.3) 09/28/18 05:10 Creat Clearance w eGFR 63.65 (>60) 09/28/18 05:10 Random Glucose 90 mg/dL (74-106) 09/28/18 05:10 Calcium 8.5 mg/dL (8.5-10.1) 09/28/18 05:10 Total Bilirubin 0.4 mg/dL (0.2-1) 09/28/18 05:10 AST 17 U/L (15-37) 09/28/18 05:10 ALT 26 U/L (13-61) 09/28/18 05:10 Alkaline Phosphatase 78 U/L (45-117) 09/28/18 05:10 Total Protein 6.3 g/dl (6.4-8.2) L 09/28/18 05:10 Albumin 3.3 g/dl (3.4-5.0) L 09/28/18 05:10 CARDIAC ENZYMES Creatine Kinase 66 U/L (26-192) 09/27/18 15:00 Troponin I < 0.02 ng/ml (0.00-0.05) 09/28/18 03:20 Current Medications Generic Name Dose Route Start Last Admin Trade Name Freq PRN Reason Stop Dose Admin Aspirin 81 mg 09/27/18 22:00 09/27/18 21:20 Asa - PO 81 mg HS RONALDO Administration Atorvastatin Calcium 20 mg 09/27/18 22:00 09/27/18 21:20 Lipitor - PO 20 mg HS RONALDO Administration Enoxaparin Sodium 40 mg 09/28/18 10:00 09/28/18 12:04 Lovenox - SQ 40 mg DAILY RONALDO Administration Gabapentin 300 mg 09/27/18 23:00 09/28/18 11:54 Neurontin - PO 300 mg BID RONALDO Administration Sodium Chloride 1,000 mls @ 75 mls/hr 09/27/18 17:15 09/27/18 19:35 1/2 Normal Saline IV 75 mls/hr ASDIR RONALDO Administration Insulin Aspart 1 vial 09/27/18 22:00 09/28/18 16:23 Novolog Vial Sliding Scale - SQ Not Given ACHS [facility] Protocol Levothyroxine Sodium 100 mcg 09/28/18 07:00 09/28/18 06:25 Synthroid - PO 100 mcg DAILY@0700 RONALDO Administration Losartan Potassium 100 mg 09/27/18 17:30 09/28/18 11:54 Cozaar - PO 100 mg DAILY RONALDO Administration Metoprolol Succinate 50 mg 09/28/18 10:00 09/28/18 11:54 Toprol Xl - PO 50 mg DAILY RONALDO Administration Home Medications Medication Instructions Recorded Acetaminophen [Tylenol .Regular 650 mg PO Q6H PRN #0 tablet 01/01/14 Strength -] Aspirin [ASA -] 81 mg PO HS #0 tab.chew 01/01/14 Levothyroxine [Synthroid -] 100 mcg PO DAILY@0700 #0 tablet 01/01/14 Metoprolol Succinate [Toprol XL -] 50 mg PO DAILY #0 tab.sr.24h 01/01/14 Simvastatin [Zocor -] 40 mg PO HS #0 tablet 01/01/14 metFORMIN HCL [Glucophage -] 500 mg PO BIDAC #0 tablet 01/01/14 Gabapentin [Neurontin] 300 mg PO BID 09/27/18 Losartan Potassium 100 mg PO DAILY 09/27/18 Ibuprofen 800 mg PO TID PRN 09/28/18 Laboratory Tests 09/28/18 05:10 Triglycerides Cholesterol Total LDL Cholesterol TSH 2.31 Free T4 0.85 ASSESSMENT AND PLAN: Patient is a 63yo female with PMHx of HTN, Arnold Chiari Malformation, vertigo, DM, hypothyroidism presented to the ED with complaints of L sided chest pain with radiation to the arm and jaw, associated with a 2 week history of blurred vision and dizziness #Acute L sided Chest Pain ; ACS is rulled out by negative troponin; EKG was normal, trop x3 negative, going for stress test in am as per Mariela #HTN continue home meds #Arnold-chiari Malformation s/p surgery (2005); Dr. Vidal is patients neuro; consulted as per patient request given blurred vision and headaches (likely related to elevated BP) #DM continue metformin; will resume in am #Hypothyroidism:TSH and free t4 within nl limit, continue synthroid 100mcg daily going for stress test in am
[2018-09-28] MEDS ORDERED: IBUPROFEN 600 MG TABLET (FP) PO ONE (21:18)
[2018-09-28] MEDS: ASPIRIN 81 MG CHEWABLE TABLETS PO SCH (21:41)
[2018-09-28] MEDS: ATORVASTATIN CA 20 MG TABLET (FP) PO SCH (21:41)
--- NOTE | 2018-09-28 22:49 | EKG ---
Test Reason : Blood Pressure : / mmHG Vent. Rate : 067 BPM Atrial Rate : 067 BPM P-R Int : 158 ms QRS Dur : 074 ms QT Int : 430 ms P-R-T Axes : 041 035 055 degrees QTc Int : 454 ms NORMAL SINUS RHYTHM NORMAL ECG WHEN COMPARED WITH ECG OF 27-SEP-2018 13:44, NO SIGNIFICANT CHANGE WAS FOUND Confirmed by PRIYA DAVIDSON MD ([id number]) on 09/28/2018 10:49:05 PM Referred By: Confirmed By:PRIYA DAVIDSON MD
--- NOTE | 2018-09-28 22:51 | EKG ---
Test Reason : Blood Pressure : / mmHG Vent. Rate : 067 BPM Atrial Rate : 067 BPM P-R Int : 150 ms QRS Dur : 078 ms QT Int : 412 ms P-R-T Axes : 048 045 050 degrees QTc Int : 435 ms NORMAL SINUS RHYTHM NORMAL ECG WHEN COMPARED WITH ECG OF 07-MAY-2014 18:41, NO SIGNIFICANT CHANGE WAS FOUND Confirmed by PRIYA DAVIDSON MD ([id number]) on 09/28/2018 10:50:29 PM Referred By: Confirmed By:RPIYA DAVIDSON MD
[2018-09-29] MEDS: INSULIN SLIDING SCALE (NOVOLOG) 1 VIAL SQ SCH ×3 (06:00→17:45)
[2018-09-29] MEDS: LEVOTHYROXINE NA 100 MCG TABLET (FP) PO SCH (06:00)
[2018-09-29 06:39] LABS: HEMATOCRIT 32.9 % (32.4-45.2); HEMOGLOBIN 10.9 GM/dL (10.7-15.3); MCH 26.2 pg (25.7-33.7); MCHC 33.2 g/dl (32.0-36.0); MEAN CELL VOLUME 78.9 fl (80-96); MEAN PLT VOLUME 8.8 fl (7.5-11.1); PLATELET COUNT 208 K/MM3 (134-434); RBC 4.17 M/mm3 (3.60-5.2); RDW 15.5 % (11.6-15.6); WHITE BLOOD COUNT 5.8 K/mm3 (4.0-10.0)
[2018-09-29 07:25] LABS: ANION GAP 6 MMOL/L (8-16); BLOOD UREA NITROGEN 21 mg/dL (7-18); CALCIUM 9.1 mg/dL (8.5-10.1); CHLORIDE 110 mmol/L (98-107); CHOLESTEROL 238 mg/dL (50-200); CO2 26 mmol/L (21-32); CREATININE 1.1 mg/dL (0.55-1.3); GLUCOSE,RANDOM 97 mg/dL (74-106); HDL CHOLESTEROL 43 mg/dL (40-60); MAGNESIUM 1.8 mg/dL (1.8-2.4); PHOSPHOROUS 4.4 mg/dL (2.5-4.9); POTASSIUM 4.4 mmol/L (3.5-5.1); SODIUM 142 mmol/L (136-145); TRIGLYCERIDES 294 mg/dL (0-150)
[2018-09-29] MEDS ORDERED: MAGNESIUM OXIDE 400 MG TABLET (FP) PO ONE (07:55)
--- NOTE | 2018-09-29 08:08 | PN ---
Physical Exam: SUBJECTIVE: Patient seen and examined OBJECTIVE: Vital Signs Period Temp Pulse Resp BP Sys/Wiggins Pulse Ox Last 24 Hr 97.2 F-98.5 F 63-72 18-20 116-142/61-79 97-100 GENERAL: The patient is awake, alert, and fully oriented, in no acute distress. HEAD: Normal with no signs of trauma. EYES: PERRL, extraocular movements intact, sclera anicteric, conjunctiva clear. No ptosis. ENT: Ears normal, nares patent, oropharynx clear without exudates, moist mucous membranes. NECK: Trachea midline, full range of motion, supple. LUNGS: Breath sounds equal, clear to auscultation bilaterally, no wheezes, no crackles, no accessory muscle use. HEART: Regular rate and rhythm, S1, S2 without murmur, rub or gallop. ABDOMEN: Soft, nontender, nondistended, normoactive bowel sounds, no guarding, no rebound, no hepatosplenomegaly, no masses. EXTREMITIES: 2+ pulses, warm, well-perfused, no edema. NEUROLOGICAL: Cranial nerves II through XII grossly intact. Normal speech, gait not observed. PSYCH: Normal mood, normal affect. SKIN: Warm, dry, normal turgor, no rashes or lesions noted Laboratory Results - last 24 hr 09/28/18 09/28/18 09/28/18 05:10 11:48 15:23 WBC RBC Hgb Hct MCV MCH MCHC RDW Plt Count MPV Sodium Potassium Chloride Carbon Dioxide Anion Gap BUN Creatinine Creat Clearance w eGFR POC Glucometer 82 126 Random Glucose Calcium Phosphorus Magnesium C-Reactive Protein 0.5 H Triglycerides Cholesterol Total LDL Cholesterol HDL Cholesterol TSH 2.31 Free T4 0.85 09/28/18 09/29/18 09/29/18 21:39 05:30 05:30 WBC 5.8 RBC 4.17 Hgb 10.9 Hct 32.9 MCV 78.9 L MCH 26.2 MCHC 33.2 RDW 15.5 Plt Count 208 MPV 8.8 Sodium 142 Potassium 4.4 Chloride 110 H Carbon Dioxide 26 Anion Gap 6 L BUN 21 H Creatinine 1.1 Creat Clearance w eGFR 50.50 POC Glucometer 102 Random Glucose 97 Calcium 9.1 Phosphorus 4.4 Magnesium 1.8 C-Reactive Protein Triglycerides 294 H Cholesterol 238 H Total LDL Cholesterol 161 H HDL Cholesterol 43 TSH Free T4 09/29/18 05:58 WBC RBC Hgb Hct MCV MCH MCHC RDW Plt Count MPV Sodium Potassium Chloride Carbon Dioxide Anion Gap BUN Creatinine Creat Clearance w eGFR POC Glucometer 96 Random Glucose Calcium Phosphorus Magnesium C-Reactive Protein Triglycerides Cholesterol Total LDL Cholesterol HDL Cholesterol TSH Free T4 Active Medications Generic Name Dose Route Start Last Admin Trade Name Freq PRN Reason Stop Dose Admin Aspirin 81 mg 09/27/18 22:00 09/28/18 21:41 Asa - PO 81 mg HS RONALDO Administration Atorvastatin Calcium 20 mg 09/27/18 22:00 09/28/18 21:41 Lipitor - PO 20 mg HS RONALDO Administration Enoxaparin Sodium 40 mg 09/28/18 10:00 09/28/18 12:04 Lovenox - SQ 40 mg DAILY RONALDO Administration Gabapentin 300 mg 09/27/18 23:00 09/28/18 21:41 Neurontin - PO 300 mg BID RONALDO Administration Insulin Aspart 1 vial 09/27/18 22:00 09/29/18 06:00 Novolog Vial Sliding Scale - SQ Not Given ACHS RONALDO Protocol Levothyroxine Sodium 100 mcg 09/28/18 07:00 09/29/18 06:00 Synthroid - PO 100 mcg DAILY@0700 RONALDO Administration Losartan Potassium 100 mg 09/27/18 17:30 09/28/18 11:54 Cozaar - PO 100 mg DAILY RONALDO Administration Metoprolol Succinate 50 mg 09/28/18 10:00 09/28/18 11:54 Toprol Xl - PO 50 mg DAILY RONALDO Administration ASSESSMENT/PLAN: 63 y/o female with PMH of HTN, Arnold Chiari Malformation, vertigo, DM, hypothyroidism presented to the ED with complaints of L sided chest pain with radiation to the arm and jaw, associated with a 2 week history of blurred vision and dizziness #L sided Chest Pain r/o ACS trops negative times theree -tylenol PRN for pain -Dr. Roger consulted; Dr alves saw patient this AM; going for stress test tomorrow AM -tele monitoring -monitor vitals and hemodynamics #HTN patient states her pressures have been high despite taking meds -currently on troprol Xl 50 and Cozaar 100 -Dr. Roger consulted #Chiari Malformation surgery was in 2005 -Dr Vidal consulted -head/neck CT ordered #DM holding patients metformin -ISS -BGMS ACHS #Hypothyroidism -TSH and free t4 wnl c/w synthroid 100mcg daily F/E/N 1/2 NS @75mls monitor electrolytes sodium controlled diet Problem List - Problems (1) HTN (hypertension) Code(s): I10 - ESSENTIAL (PRIMARY) HYPERTENSION (2) Diabetes Code(s): E11.9 - TYPE 2 DIABETES MELLITUS WITHOUT COMPLICATIONS (3) Hypothyroidism Code(s): E03.9 - HYPOTHYROIDISM, UNSPECIFIED (4) Chiari malformation Code(s): XXT5369 - (5) Chest pain at rest Code(s): R07.9 - CHEST PAIN, UNSPECIFIED
[2018-09-29] MEDS ORDERED: REGADENOSON 0.4 MG/5 ML PRE-FILLED SYRINGE IVPUSH ONE ×2 (09:45→11:22)
--- NOTE | 2018-09-29 12:07 | ECHO ---
Name: KAMLESH NUNEZ Exam:Adult Echocardiogram Study Date: 09/29/2018 08:49 AM Age: 63 yrs Reason For Study: R/O LV DYSFUNCTION Height: 61 in Weight: 175 lb BSA: 1.8 m2 MMode/2D Measurements & Calculations IVSd: 0.93 cm Ao root diam: 2.5 cm LVIDd: 3.5 cm LA dimension: 3.5 cm LVIDs: 2.4 cm LVPWd: 0.92 cm EDV(Teich): 52.1 ml LVOT diam: 2.3 cm ESV(Teich): 20.9 ml TAPSE: 2.1 cm Doppler Measurements & Calculations MV E max silvio: 56.3 cm/sec Ao V2 max: 132.9 cm/sec MV A max silvio: 61.7 cm/sec Ao max P.1 mmHg MV E/A: 0.91 Ao V2 mean: 81.7 cm/sec MV dec time: 0.19 sec Ao mean P.1 mmHg Ao V2 VTI: 25.6 cm PAM(I,D): 2.5 cm2 PAM(V,D): 2.0 cm2 LV V1 max P.7 mmHg MR max silvio: 322.9 cm/sec LV V1 mean P.0 mmHg MR max P.7 mmHg LV V1 max: 64.8 cm/sec LV V1 mean: 48.9 cm/sec LV V1 VTI: 15.8 cm SV(LVOT): 64.5 ml TR max silvio: 202.7 cm/sec TR max P.5 mmHg PI end-d silvio: 93.7 cm/sec Med Peak E' Silvio: 2.9 cm/sec Med E/e': 19.2 Lat Peak E' Silvio: 6.1 cm/sec Lat E/e': 9.2 Procedure A complete two-dimensional transthoracic echocardiogram was performed (2D, M-mode, Doppler and color flow Doppler). Left Ventricle The left ventricular size, thickness and function are normal. Ejection Fraction = 60%. The transmitra l spectral Doppler flow pattern is suggestive of impaired LV relaxation. The left ventricular wall rajni on is normal. Right Ventricle The right ventricle is moderately dilated. The right ventricular systolic function is normal. Atria The left atrial size is normal. The right atrium is moderately dilated. Mitral Valve The mitral valve is normal in structure and function. There is trace to mild mitral regurgitation. Tricuspid Valve The tricuspid valve is normal in structure and function. There is mild tricuspid regurgitation. Right ventricular systolic pressure is normal. Aortic Valve The aortic valve is normal in structure and function. Pulmonic Valve The pulmonic valve is normal in structure and function. Trace pulmonic valvular regurgitation. Great Vessels The aortic root is normal size. Pericardium/Pleura Trivial pericardial effusion not hemodynamically significant. There is no pleural effusion. Interpretation Summary The left ventricular size, thickness and function are normal Ejection Fraction = 60%. The right ventricle is moderately dilated. The right ventricular systolic function is normal. The right atrium is moderately dilated. There is trace to mild mitral regurgitation. There is mild tricuspid regurgitation. Trace pulmonic valvular regurgitation. Trivial pericardial effusion not hemodynamically significant MD Geo Hui 09/29/2018 12:06 PM
[2018-09-29] MEDS: LOSARTAN POTASSIUM 50 MG TABLET (FP) PO SCH (12:46)
[2018-09-29] MEDS: GABAPENTIN 300 MG CAPSULE (FP) PO SCH (12:47)
[2018-09-29] MEDS: ENOXAPARIN NA (PORCINE) 40 MG/0.4 ML DISP.SYRIN SQ SCH (12:47)
--- NOTE | 2018-09-29 14:43 | PN ---
Progress Note, Physician Chief Complaint: Pt A&Ox3; ambululatory; no chest pain or headache presently. History of Present Illness: 63-year-old female history of hypertension, vertigo, Chiari malformation--> 2005 surgical repair, diabetes, GERD, anxiety depression (exacerbated since the of her sister 05/2018; she self-discontinued Lexapro), obesity, sedentary , who presents with a complaint of sharp chest pain and headahce. Patient states that for the past 2 weeks she has felt unwell felt mild lightheadedness, mild headache that felt like ants on her scalp, however last night she began to develop some chest pain and shortness of breath that she describes as pressure- like in the mid epigastrium radiating up to her left jaw and left arm - the pain was intermittent there was associated nausea and dyspnea on exertion. 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 She did take several baby aspirin prior to arrival Patient denies any smoking or illicit or recreational drug use. - Current Medication List Current Medications: Active Medications Aspirin (Asa -) 81 mg PO [facility] Last Admin: 09/28/18 21:41 Dose: 81 mg Atorvastatin Calcium (Lipitor -) 20 mg PO [facility] Last Admin: 09/28/18 21:41 Dose: 20 mg Enoxaparin Sodium (Lovenox -) 40 mg SQ DAILY [facility] Last Admin: 09/29/18 12:47 Dose: 40 mg Gabapentin (Neurontin -) 300 mg PO BID [facility] Last Admin: 09/29/18 12:47 Dose: 300 mg Insulin Aspart (Novolog Vial Sliding Scale -) 1 vial SQ [facility]; Protocol Last Admin: 09/29/18 12:54 Dose: Not Given Levothyroxine Sodium (Synthroid -) 100 mcg PO DAILY@0700 [facility] Last Admin: 09/29/18 06:00 Dose: 100 mcg Losartan Potassium (Cozaar -) 100 mg PO DAILY [facility] Last Admin: 09/29/18 12:46 Dose: 100 mg Metoprolol Succinate (Toprol Xl -) 50 mg PO DAILY [facility] Last Admin: 09/29/18 12:46 Dose: 50 mg - Objective Vital Signs: Vital Signs Temperature 97.8 F 09/29/18 10:00 Pulse Rate 60 09/29/18 10:00 Respiratory Rate 18 09/29/18 10:00 Blood Pressure 126/73 09/29/18 10:00 O2 Sat by Pulse Oximetry (%) 99 09/29/18 09:00 Constitutional: Yes: Well Nourished, Calm Eyes: Yes: WNL Labs: CBC, BMP 09/29/18 05:30 09/29/18 05:30 Problem List - Problems (1) Obesity Code(s): E66.9 - OBESITY, UNSPECIFIED (2) Chest pain at rest Assessment/Plan: TNI < 0.02 x 3 ECHO: normal LVEF. Telemetry: NSR; no arrhythmias ("NSVT" was artifactual). Stress Lexiscan MIBI: normal study. From a cardiac perspective, pt may be discharged home and followed as outpt. Long discussion with pt on need to decrease weight (follow heart-healthy diet, with specia attention to portion control, as pt says "I don't have a problem with sugary drinks or certain foods''but I love to eat a lot"), and increase daily exercise. The importance of this in helping control BP and pt's " Bordrline diabetes" was empahsized. Statin: pt has elevated LDL and triglycerides, and low HDL. Code(s): R07.9 - CHEST PAIN, UNSPECIFIED (3) Chiari malformation Code(s): GRG5577 - (4) Diabetes Code(s): E11.9 - TYPE 2 DIABETES MELLITUS WITHOUT COMPLICATIONS (5) HTN (hypertension) Code(s): I10 - ESSENTIAL (PRIMARY) HYPERTENSION (6) Acid reflux Code(s): K21.9 - GASTRO-ESOPHAGEAL REFLUX DISEASE WITHOUT ESOPHAGITIS (7) Anxiety and depression Assessment/Plan: Pt was on Lexapro; she expressed interest in seeing a psychiatrist and possibly restarting SSRI; this may be arranged as an outpatient. (No suicidal ideation; pt's depression has been exacerbated since the of her sister 05/2019, and she is under a great deal of emotional stress at work). Code(s): F41.9 - ANXIETY DISORDER, UNSPECIFIED; F32.9 - MAJOR DEPRESSIVE DISORDER, SINGLE EPISODE, UNSPECIFIED (8) Hyperthyroidism Assessment/Plan: on synthroid; TFTs WNL. Code(s): E05.90 - THYROTOXICOSIS, UNSP WITHOUT THYROTOXIC CRISIS OR STORM
--- NOTE | 2018-09-29 14:47 | DS ---
Physical Exam: SUBJECTIVE: Patient seen and examined at bedside- no acute events overnight patient states her chest pain has improved;; she is going for stress test this AM denies any CP/SOB/Nv fevers or chills OBJECTIVE: Vital Signs Period Temp Pulse Resp BP Sys/Wiggins Pulse Ox Last 24 Hr 97.2 F-98.5 F 60-71 18-20 116-140/61-79 98-99 PHYSICAL EXAM GENERAL: The patient is awake, alert, and fully oriented, in no acute distress. EYES: PEERLA: EOMI no scleral icterus NECK: no JVD; no lympahdenopathy LUNGS:CTA B/L; no rales, rhonchi or wheezing HEART: Regular rate and rhythm, S1, S2 without murmur, rub or gallop. ABDOMEN: Soft, nontender; nondistended +BS EXTREMITIES: 2+ pulses, warm, well-perfused, no edema. PSYCH: Normal mood, normal affect. SKIN: Warm, dry, normal turgor, no rashes or lesions noted. LABS Laboratory Results - last 24 hr 09/28/18 09/28/18 09/29/18 15:23 21:39 05:30 WBC RBC Hgb Hct MCV MCH MCHC RDW Plt Count MPV ESR 14 Sodium Potassium Chloride Carbon Dioxide Anion Gap BUN Creatinine Creat Clearance w eGFR POC Glucometer 126 102 Random Glucose Calcium Phosphorus Magnesium Triglycerides Cholesterol Total LDL Cholesterol HDL Cholesterol 09/29/18 09/29/18 09/29/18 05:30 05:30 05:58 WBC 5.8 RBC 4.17 Hgb 10.9 Hct 32.9 MCV 78.9 L MCH 26.2 MCHC 33.2 RDW 15.5 Plt Count 208 MPV 8.8 ESR Sodium 142 Potassium 4.4 Chloride 110 H Carbon Dioxide 26 Anion Gap 6 L BUN 21 H Creatinine 1.1 Creat Clearance w eGFR 50.50 POC Glucometer 96 Random Glucose 97 Calcium 9.1 Phosphorus 4.4 Magnesium 1.8 Triglycerides 294 H Cholesterol 238 H Total LDL Cholesterol 161 H HDL Cholesterol 43 09/29/18 12:53 WBC RBC Hgb Hct MCV MCH MCHC RDW Plt Count MPV ESR Sodium Potassium Chloride Carbon Dioxide Anion Gap BUN Creatinine Creat Clearance w eGFR POC Glucometer 104 Random Glucose Calcium Phosphorus Magnesium Triglycerides Cholesterol Total LDL Cholesterol HDL Cholesterol echo: normal EF; RV and RA dilation with MR CO and TR stress test negative head CT: no acute pathology cervical spine ct: no gross fractures; subluxation or deformities HOSPITAL COURSE: Date of Admission:09/27/18 63 y/o female with PMH of HTN, vertigo, Arnold Chiari Malformation, DM, hypothyroidism, presented to the ED with worsening chest pain that started last night. Of note, patient has been having for the past 2 weeks blurred vision and associated lightheadedness/headaches, however, her chest pain started yesterday. She was laying in bed when the pain started it she said it was midsternal with radiation to the left arm and up to the jaw- at its worse was a 10/10. She has never had this before- it wasn't associated with exertion or positional. She had taken her pressures multiple times with her systolics being in the 180's and diastolics being in the 100's. she took an extra metoprolol thinking that would resolve her symptoms but it did not. she at first went to urgent care then was sent here. she denies any recent illlnesses, no nausea/ vomiting/fevers or chills. upon arrival her vital signs were stable she had a normal EKG with 3 negative troponins. she was continued on her home medications - she was seen by cardiology who ordered an echo for her with the results noted above and she also underwent a stress test which was normal. she was discharged home with cardiology follow yp within one week and to see her pcp within one week Date of Discharge: 09/29/18 Minutes to complete discharge: 39 Discharge Summary Reason For Visit: PALPITATIONS, TACHYCARDIA,CHEST PAIN AT REST Condition: Stable - Instructions Diet, Activity, Other Instructions: You came to the hospital with complaints of left sided chest pain, dizziness and blurred vision. We did a CT scan of your head and neck which were both normal showing no acute pathology. Your cardiac markers and EKG were all normal. You were evaluated by a field scout and underwent a stress test and had an echocardiogram while in the hospital, both of which were normal. Please resume all of your home medications Please follow up with Dr. Reyes in one week Please follow up with Dr. Roger within one week Please follow up with Dr. Vidal within a week *if you begin to experience worsening chest pains, shortness of breath, dizziness, please return to the emergency room immediately Referrals: Androne,Мария S [Primary Care Provider] - 1 Week Levi Roger MD [Staff Physician] - 1 Week Dory Vidal MD [Staff Physician] - 1 Week Disposition: HOME - Home Medications Comprehensive Discharge Medication List: Ambulatory Orders Aspirin [ASA -] 81 mg PO HS #0 tab.chew 01/01/14 Levothyroxine [Synthroid -] 100 mcg PO DAILY@0700 #0 tablet 01/01/14 Metoprolol Succinate [Toprol XL -] 50 mg PO DAILY #0 tab.sr.24h 01/01/14 Simvastatin [Zocor -] 40 mg PO HS #0 tablet 01/01/14 metFORMIN HCL [Glucophage -] 500 mg PO BIDAC #0 tablet 01/01/14 Gabapentin [Neurontin] 300 mg PO BID 09/27/18 Losartan Potassium 100 mg PO DAILY 09/27/18 Ibuprofen 800 mg PO TID PRN 09/28/18 Problem List - Problems (1) HTN (hypertension) Code(s): I10 - ESSENTIAL (PRIMARY) HYPERTENSION (2) Diabetes Code(s): E11.9 - TYPE 2 DIABETES MELLITUS WITHOUT COMPLICATIONS (3) Hypothyroidism Code(s): E03.9 - HYPOTHYROIDISM, UNSPECIFIED (4) Chiari malformation Code(s): HQT0698 - (5) Chest pain at rest Code(s): R07.9 - CHEST PAIN, UNSPECIFIED This patient is new to me today: No Emergency Visit: Yes ED Registration Date: 09/27/18 Care time: The patient presented to the Emergency Department on the above date and was hospitalized for further evaluation of their emergent condition. Critical Care patient: No - Discharge Referral Referred to [facility] Med P.C.: No
--- NOTE | 2018-09-29 17:17 | PN ---
Teaching Attending Note Name of Resident: Liz Zambrano ATTENDING PHYSICIAN STATEMENT I saw and evaluated the patient. I reviewed the resident's note and discussed the case with the resident. I agree with the resident's findings and plan as documented. SUBJECTIVE: Patient is feeling better with no acute distress, no nausea or vomiting. OBJECTIVE: Vital Signs Temperature 98.7 F 09/29/18 14:00 Pulse Rate 72 09/29/18 14:00 Respiratory Rate 20 09/29/18 14:00 Blood Pressure 131/77 09/29/18 14:00 O2 Sat by Pulse Oximetry (%) 99 09/29/18 15:00 GENERAL: The patient is awake, alert, and fully oriented, in no acute distress. EYES: PEERLA: EOMI; no scleral icterus NECK: no JVD; no lymphadenopathy LUNGS: CTA B/L; no rales, rhonchi or wheezing HEART: Regular rate and rhythm, S1, S2 without murmur, rub or gallop. ABDOMEN: Soft, mild RLQ tenderness on palpation. l EXTREMITIES: 2+ pulses, warm, well-perfused, no edema. PSYCH: Normal mood, normal affect. SKIN: Warm, dry, normal turgor, no rashes or lesions noted CBCD WBC 5.8 K/mm3 (4.0-10.0) 09/29/18 05:30 RBC 4.17 M/mm3 (3.60-5.2) 09/29/18 05:30 Hgb 10.9 GM/dL (10.7-15.3) 09/29/18 05:30 Hct 32.9 % (32.4-45.2) 09/29/18 05:30 MCV 78.9 fl (80-96) L 09/29/18 05:30 MCHC 33.2 g/dl (32.0-36.0) 09/29/18 05:30 RDW 15.5 % (11.6-15.6) 09/29/18 05:30 Plt Count 208 K/MM3 (134-434) 09/29/18 05:30 MPV 8.8 fl (7.5-11.1) 09/29/18 05:30 CMP Sodium 142 mmol/L (136-145) 09/29/18 05:30 Potassium 4.4 mmol/L (3.5-5.1) 09/29/18 05:30 Chloride 110 mmol/L (98-107) H 09/29/18 05:30 Carbon Dioxide 26 mmol/L (21-32) 09/29/18 05:30 Anion Gap 6 MMOL/L (8-16) L 09/29/18 05:30 BUN 21 mg/dL (7-18) H 09/29/18 05:30 Creatinine 1.1 mg/dL (0.55-1.3) 09/29/18 05:30 Creat Clearance w eGFR 50.50 (>60) 09/29/18 05:30 Random Glucose 97 mg/dL (74-106) 09/29/18 05:30 Calcium 9.1 mg/dL (8.5-10.1) 09/29/18 05:30 Total Bilirubin 0.4 mg/dL (0.2-1) 09/28/18 05:10 AST 17 U/L (15-37) 09/28/18 05:10 ALT 26 U/L (13-61) 09/28/18 05:10 Alkaline Phosphatase 78 U/L (45-117) 09/28/18 05:10 Total Protein 6.3 g/dl (6.4-8.2) L 09/28/18 05:10 Albumin 3.3 g/dl (3.4-5.0) L 09/28/18 05:10 CARDIAC ENZYMES Creatine Kinase 66 U/L (26-192) 09/27/18 15:00 Troponin I < 0.02 ng/ml (0.00-0.05) 09/28/18 03:20 Current Medications Generic Name Dose Route Start Last Admin Trade Name Gregor PRN Reason Stop Dose Admin Aspirin 81 mg 09/27/18 22:00 09/28/18 21:41 Asa - PO 81 mg HS RONALDO Administration Atorvastatin Calcium 20 mg 09/27/18 22:00 09/28/18 21:41 Lipitor - PO 20 mg HS RONALDO Administration Enoxaparin Sodium 40 mg 09/28/18 10:00 09/29/18 12:47 Lovenox - SQ 40 mg DAILY RONALDO Administration Gabapentin 300 mg 09/27/18 23:00 09/29/18 12:47 Neurontin - PO 300 mg BID RONALDO Administration Insulin Aspart 1 vial 09/27/18 22:00 09/29/18 12:54 Novolog Vial Sliding Scale - SQ Not Given ACHS [facility] Protocol Levothyroxine Sodium 100 mcg 09/28/18 07:00 09/29/18 06:00 Synthroid - PO 100 mcg DAILY@0700 RONALDO Administration Losartan Potassium 100 mg 09/27/18 17:30 09/29/18 12:46 Cozaar - PO 100 mg DAILY RONALDO Administration Metoprolol Succinate 50 mg 09/28/18 10:00 09/29/18 12:46 Toprol Xl - PO 50 mg DAILY RONALDO Administration Home Medications Medication Instructions Recorded Aspirin [ASA -] 81 mg PO HS #0 tab.chew 01/01/14 Levothyroxine [Synthroid -] 100 mcg PO DAILY@0700 #0 tablet 01/01/14 Metoprolol Succinate [Toprol XL -] 50 mg PO DAILY #0 tab.sr.24h 01/01/14 Simvastatin [Zocor -] 40 mg PO HS #0 tablet 01/01/14 metFORMIN HCL [Glucophage -] 500 mg PO BIDAC #0 tablet 01/01/14 Gabapentin [Neurontin] 300 mg PO BID 09/27/18 Losartan Potassium 100 mg PO DAILY 09/27/18 Ibuprofen 800 mg PO TID PRN 09/28/18 Laboratory Tests 09/28/18 09/29/18 05:10 05:30 Triglycerides 294 H Cholesterol 238 H Total LDL Cholesterol 161 H TSH 2.31 Free T4 0.85 ASSESSMENT AND PLAN: Patient is a 63yo female with PMHx of HTN, Arnold Chiari Malformation, vertigo, DM, hypothyroidism presented to the ED with complaints of L sided chest pain with radiation to the arm and jaw, associated with a 2 week history of blurred vision and dizziness #Acute L sided Chest Pain ; ACS is rulled out by negative troponin; EKG was normal, trop x3 negative, negative stress test. 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 #HTN continue home meds #Arnold-chiari Malformation s/p surgery (2005); Dr. Vidal is patients neuro; consulted as per patient request given blurred vision and headaches (likely related to elevated BP) #DM continue metformin; will resume in am #Hypothyroidism:TSH and free t4 within nl limit, continue synthroid 100mcg daily HLD: ON Zocor 40mg continue discharge patient home, follow up with dr. ferrera, agreed for discharge.
[2018-09-29 19:12] VITALS: BP 123/63; PULSE 66; TEMP 98
== END 2018-09-29 18:33 | disposition home or self-care (01) ==
LOC: JER 13:42 → JERBED 15:57 → J4W 09-28 14:10
PROVIDERS: ADMIT Internal Medicine; ATTEND Internal Medicine
PROC: 3E033GC Introduction of Other Therapeutic Substance into Peripheral Vein, Percutaneous Approach (ICD-10-PCS; principal; 2018-09-27)
PROC: 3E0337Z Introduction of Electrolytic and Water Balance Substance into Peripheral Vein, Percutaneous Approach (ICD-10-PCS; 2018-09-27)
PROC: 3E013GC Introduction of Other Therapeutic Substance into Subcutaneous Tissue, Percutaneous Approach (ICD-10-PCS; 2018-09-27)
DX: R07.9 Chest pain, unspecified (principal); R00.0 Tachycardia, unspecified; R00.2 Palpitations; I10 Essential (primary) hypertension; E78.5 Hyperlipidemia, unspecified; E11.9 Type 2 diabetes mellitus without complications; E03.9 Hypothyroidism, unspecified; K21.9 Gastro-esophageal reflux disease without esophagitis; K22.4 Dyskinesia of esophagus; Q07.00 Arnold-Chiari syndrome without spina bifida or hydrocephalus; M54.12 Radiculopathy, cervical region; M79.7 Fibromyalgia; E66.9 Obesity, unspecified; Z68.33 Body mass index [BMI] 33.0-33.9, adult; F41.9 Anxiety disorder, unspecified; F32.9 Major depressive disorder, single episode, unspecified; Z87.891 Personal history of nicotine dependence; Z79.82 Long term (current) use of aspirin; Z79.84 Long term (current) use of oral hypoglycemic drugs
CPT/HCPCS: 36415; 70450-TC; 71046-TC-FY; 72125-TC; 78452-TC; 80048; 80053; 80061; 82550; 82962; 83036; 83690; 83721; 83735; 84100; 84439; 84443; 84484; 85025; 85027; 85651; 86140; 93005; 93010; 93017; 93306-TC; 99285-25; A9502; G0378; J2785

== ENCOUNTER 2020-04-10 14:23 | Inpatient (IN) | payer OTHER ==
[2020-04-10] MEDS ORDERED: METOCLOPRAMIDE HCL INJECTION 10 MG/2 ML VIAL IVPB ONE (14:38)
[2020-04-10] MEDS ORDERED: SODIUM CHLORIDE 1,000 ML IV STA (14:38)
--- NOTE | 2020-04-10 14:39 | PDOC ---
Rapid Medical Evaluation Time Seen by Provider: 04/10/20 14:36 Medical Evaluation: Allergies Allergy/AdvReac Type Severity Reaction Status Date / Time No Known Drug Allergies Allergy Verified 09/27/18 13:50 04/10/20 14:36 Pt with PMH of surgically repaired chiari malformation presents for evaluation of headache for two days. States the pain is mostly in the back of the head. Also admits to dizziness, nausea and loss of balance. Exam: No gross neuro deficits, NAD, ambulatory Ordered: Labs, IV, meds Pt to proceed to the ER for further evaluation Discharge Disposition - Diagnosis Headache Qualifiers: Headache type: unspecified Headache chronicity pattern: acute headache Intractability: not intractable Qualified Code(s): R51 - Headache - Referrals - Patient Instructions - Post Discharge Activity
[2020-04-10] MEDS ORDERED: METOCLOPRAMIDE HCL INJECTION 10 MG/2 ML VIAL ONE (15:15)
[2020-04-10 15:28] LABS: BASO % 0.6 % (0-2.0); EOS % 1.3 % (0-4.5); HEMATOCRIT 36.1 % (32.4-45.2); HEMOGLOBIN 11.4 GM/dL (10.7-15.3); LYMPH % 37.6 % (8-40); MCHC 31.6 g/dl (32.0-36.0); MEAN CELL VOLUME 82.2 fl (80-96); MEAN PLT VOLUME 8.4 fl (7.5-11.1); NEUT % 55.5 % (42.8-82.8); PLATELET COUNT 232 K/MM3 (134-434); RDW 14.7 % (11.6-15.6); WHITE BLOOD COUNT 6.5 K/mm3 (4.0-10.0)
[2020-04-10 15:34] LABS: INR 1.03 (0.83-1.09); PROTHROMBIN TIME (PATIENT) 12.2 SEC (9.7-13.0)
[2020-04-10 15:59] LABS: BILIRUBIN,TOTAL 0.4 mg/dL (0.2-1); CALCIUM 9.1 mg/dL (8.5-10.1); CREATININE 1.8 mg/dL (0.55-1.3); POTASSIUM 4.1 mmol/L (3.5-5.1); TOT PROT 7.3 g/dl (6.4-8.2)
--- NOTE | 2020-04-10 17:49 | PDOC ---
History of Present Illness - General Chief Complaint: Pain Stated Complaint: HEADACHE Time Seen by Provider: 04/10/20 14:36 History Source: Patient Exam Limitations: No Limitations - History of Present Illness Initial Comments: 04/10/20 17:41 64-year-old female history of Chiari malformation removed in 2005, hypertension, vertigo, diabetes, fibromyalgia, hypothyroidism, hyperlipidemia, migraine presents complaining of intermittent frontal and occipital headache x 3 days worsening over the past 2 days with nausea and 2 episodes of vomiting. Also reports feeling unbalanced when walking which is common for her except feels more unsteady over the past 2 days. Denies fever, chills, tinnitus, neck pain, back pain, chest pain, palpitations, cough, abdominal pain, diarrhea, urinary symptoms or any other complaints. Patient follows up regularly with Dr. David Vidal (last visit 3 days ago) and pmd Dr. Мария Reyes. PSHx: appy tonsillectomy cataract surgery (R eye 03/16/20, L eye 09/16/19) BTL carpal tunnel repair prolapsed bladder hemorrhoidectomy ROS: as above PE: GENERAL: well-appearing, NAD HEAD: NCAT EYES: Pupils equal, round and reactive to light, EOMI, sclera anicteric, conjunctiva clear ENT: Normal bilateral TMs, normal bilateral ear canals, pharynx: no erythema, no exudate, uvula midline NECK: supple, no lymphadenopathy CHEST: nontender RESP: clear, no w/r/r CARDIO: rrr, no m/g/r ABD: +BS, soft, nontender, non distended BACK: no midline spinal ttp, no CVAT EXTREMITIES: Normal range of motion, no edema NEUROLOGICAL: Normal speech, normal gait, 5/5 strength and sensation SKIN: Warm, Dry Is this a multiple visit Asthma Patient?: No Past History - Medical History Allergies/Adverse Reactions: Allergies Allergy/AdvReac Type Severity Reaction Status Date / Time No Known Drug Allergies Allergy Verified 04/10/20 14:45 Home Medications: Ambulatory Orders Aspirin [ASA -] 81 mg PO HS #0 tab.chew 01/01/14 Levothyroxine [Synthroid -] 100 mcg PO DAILY@0700 #0 tablet 01/01/14 Metoprolol Succinate [Toprol XL -] 50 mg PO DAILY #0 tab.sr.24h 01/01/14 Simvastatin [Zocor -] 40 mg PO HS #0 tablet 01/01/14 metFORMIN HCL [Glucophage -] 500 mg PO BIDAC #0 tablet 01/01/14 Gabapentin [Neurontin] 300 mg PO BID 09/27/18 Losartan Potassium 100 mg PO DAILY 09/27/18 Ibuprofen 800 mg PO TID PRN 09/28/18 Anemia: No Asthma: No Cancer: No Cardiac Disorders: No CVA: No COPD: No CHF: No Dementia: (arnold-chiari malformation) Diabetes: Yes GI Disorders: Yes (internal hemorrhoids) Disorders: No HTN: Yes Hypercholesterolemia: Yes Liver Disease: No Seizures: No Thyroid Disease: Yes (hypothyroid) - Surgical History Abdominal Surgery: Yes (tummy tuck) Appendectomy: Yes Cardiac Surgery: No Cholecystectomy: No Lung Surgery: No Neurologic Surgery: Yes (chiari malformation repair) Orthopedic Surgery: Yes (neck surgery) - Psycho-Social/Smoking History Smoking Status: No Smoking History: Never smoked Have you smoked in the past 12 months: No Number of Cigarettes Smoked Daily: 0 If you are a former smoker, when did you quit?: 30 years ago 'Breaking Loose' booklet given: 09/28/18 *Physical Exam - Vital Signs Last Vital Signs Temp Pulse Resp BP Pulse Ox 98.1 F 82 18 97/70 98 04/10/20 14:44 04/10/20 14:44 04/10/20 14:44 04/10/20 14:44 04/10/20 14:44 ED Treatment Course - LABORATORY CBC & Chemistry Diagram: 04/10/20 15:11 04/10/20 15:11 - ADDITIONAL ORDERS Additional order review: Laboratory Results 04/10/20 04/10/20 15:11 15:11 PT with INR 12.20 INR 1.03 Sodium 143 Potassium 4.1 Chloride 110 H Carbon Dioxide 26 Anion Gap 8 BUN 31.0 H Creatinine 1.8 H Est GFR (CKD-EPI)AfAm 34.36 Est GFR (CKD-EPI)NonAf 29.64 Random Glucose 118 H Calcium 9.1 Total Bilirubin 0.4 AST 18 ALT 19 Alkaline Phosphatase 60 Total Protein 7.3 Albumin 4.0 04/10/20 15:11 RBC 4.40 MCV 82.2 MCHC 31.6 L RDW 14.7 MPV 8.4 Neutrophils % 55.5 Lymphocytes % 37.6 Monocytes % 5.0 Eosinophils % 1.3 Basophils % 0.6 - RADIOLOGY Radiology Studies Ordered: Category Date Time Status HEAD CT WITHOUT CONTRAST [CT] Stat CT Scan 04/10/20 15:23 Taken - Medications Given in the ED: ED Medications Discontinued Medications Generic Name Dose Route Start Last Admin Trade Name Abdoulayeq PRN Reason Stop Dose Admin Diphenhydramine HCl 12.5 mg 04/10/20 14:38 04/10/20 15:23 Benadryl Injection - IVPB 04/10/20 14:39 12.5 mg ONCE ONE Administration Sodium Chloride 1,000 mls @ 1,000 mls/hr 04/10/20 14:38 04/10/20 15:23 Normal Saline - IV 04/10/20 15:37 1,000 mls/hr ASDIR STA Administration Metoclopramide HCl 10 mg 04/10/20 14:38 04/10/20 15:23 Reglan Injection - IVPB 04/10/20 14:39 10 mg ONCE ONE Administration Medical Decision Making - Medical Decision Making 04/10/20 17:49 64-year-old female history of Chiari malformation removed in 2005, hypertension, vertigo, diabetes, fibromyalgia, hypothyroidism, hyperlipidemia, migraine presents complaining of intermittent frontal and occipital headache x 3 days worsening over the past 2 days with nausea and 2 episodes of vomiting. Also reports feeling unbalanced when walking which is common for her except feels more unsteady over the past 2 days. Denies fever, chills, tinnitus, neck pain, back pain, chest pain, palpitations, cough, abdominal pain, diarrhea, urinary symptoms or any other complaints. Patient follows up regularly with Dr. David Vidal (last visit 3 days ago) and pmd Dr. Мария Reyes. labs benadryl, reglan, fluids head CT w/o con 04/10/20 18:39 CT head w/o con: No acute findings as per final read Patient feels some improvement after IV Benadryl, Reglan and 1 L fluids initial BP 97/70, repeat BP 101/56 Cr 1.8 ( increase from 1.1 on 09/2018) I spoke with Dr. Мария Reyes who is aware of case and will admit ordered renal and pelvic US ordered 2nd L of NS and po meclizine covid swab ordered Patient aware and agrees with admission 04/10/20 18:42 Discharge - Discharge Information Problems reviewed: Yes Clinical Impression/Diagnosis: Headache Qualifiers: Headache type: unspecified Headache chronicity pattern: acute headache Intractability: not intractable Qualified Code(s): R51 - Headache Condition: Stable - Admission Yes - Follow up/Referral Referrals: Мария Reyes [Primary Care Provider] - - Patient Discharge Instructions - Post Discharge Activity
[2020-04-10] MEDS ORDERED: SODIUM CHLORIDE 0.9% 500 ML INFUS.BAG IV ONE (18:37)
[2020-04-10] MEDS ORDERED: MECLIZINE HCL 25 MG TABLET (FP) PO ONE (18:38)
[2020-04-10] MEDS ORDERED: MECLIZINE HCL 25 MG TABLET (FP) ONE (18:40)
--- NOTE | 2020-04-10 19:28 | CON.CARD ---
Consult Consult Specialty:: Cardiology - History of Present Illness History of Present Illness: 64-year-old female history of Chiari malformation removed in 2005, hypertension, vertigo, diabetes, fibromyalgia, hypothyroidism, hyperlipidemia, migraine presents complaining of intermittent frontal and occipital headache x 3 days worsening over the past 2 days with nausea and 2 episodes of vomiting. Also r eports feeling unbalanced when walking which is common for her except feels more unsteady over the past 2 days. Denies fever, chills, tinnitus, neck pain, back pain, chest pain, palpitations, cough, abdominal pain, diarrhea, urinary symptoms or any other complaints. Patient follows up regularly with Dr. David Vidal (last visit 3 days ago) and pmd Dr. Мария Reyes. PSHx: appy tonsillectomy cataract surgery (R eye 03/16/20, L eye 09/16/19) BTL carpal tunnel repair prolapsed bladder hemorrhoidectomy - History Source History Provided By: Patient, Medical Record - Past Medical History Cardio/Vascular: Yes: HTN, Hyperlipdemia Endocrine: Yes: Diabetes Mellitus - Alcohol/Substance Use Hx Alcohol Use: No - Smoking History Smoking history: Never smoked Have you smoked in the past 12 months: No Aproximately how many cigarettes per day: 0 If you are a former smoker, when did you quit?: 30 years ago Home Medications - Allergies Allergies/Adverse Reactions: Allergies Allergy/AdvReac Type Severity Reaction Status Date / Time No Known Drug Allergies Allergy Verified 04/10/20 14:45 - Home Medications Home Medications: Ambulatory Orders Levothyroxine [Synthroid -] 100 mcg PO DAILY@0700 #0 tablet 01/01/14 Metoprolol Succinate [Toprol XL -] 50 mg PO DAILY #0 tab.sr.24h 01/01/14 metFORMIN HCL [Glucophage -] 500 mg PO BIDAC #0 tablet 01/01/14 Gabapentin [Neurontin] 600 mg PO HS 09/27/18 Fenofibrate 48 mg PO HS 04/10/20 Acetaminophen [Tylenol .Regular Strength -] 650 mg PO Q6H PRN tablet 04/12/20 Albuterol Sulfate Inhaler - [Ventolin HFA Inhaler -] 2 puff IH Q6H PRN inhaler 04/12/20 Aspirin [ASA -] 81 mg PO HS tab.chew 04/12/20 Atorvastatin Ca [Lipitor] 20 mg PO HS tablet 04/12/20 Lisinopril [Prinivil] 5 mg PO DAILY #30 tablet 04/12/20 Review of Systems - Review of Systems Constitutional: reports: No Symptoms Eyes: reports: No Symptoms HENT: reports: No Symptoms Neck: reports: No Symptoms Cardiovascular: reports: No Symptoms Gastrointestinal: reports: No Symptoms Genitourinary: reports: No Symptoms Breasts: reports: No Symptoms Reported Musculoskeletal: reports: No Symptoms Integumentary: reports: No Symptoms Neurological: reports: Headache Endocrine: reports: No Symptoms Hematology/Lymphatic: reports: No Symptoms Psychiatric: reports: No Symptoms Vital Signs: Vital Signs Temperature 98.1 F 04/10/20 14:44 Pulse Rate 82 04/10/20 14:44 Respiratory Rate 18 04/10/20 14:44 Blood Pressure 97/70 04/10/20 14:44 O2 Sat by Pulse Oximetry (%) 98 04/10/20 14:44 Constitutional: Yes: Well Nourished, No Distress, Calm Eyes: Yes: WNL, Conjunctiva Clear, EOM Intact HENT: Yes: WNL, Atraumatic, Normocephalic Neck: Yes: WNL, Supple, Trachea Midline Respiratory: Yes: WNL, Regular, CTA Bilaterally Gastrointestinal: Yes: WNL, Normal Bowel Sounds Renal/: Yes: WNL Cardiovascular: Yes: WNL, Regular Rate and Rhythm Musculoskeletal: Yes: WNL Extremities: Yes: WNL Integumentary: Yes: WNL Neurological: Yes: WNL, Alert, Oriented ...Motor Strength: WNL Psychiatric: Yes: WNL, Alert, Oriented - Other Data Labs, Other Data: CBC, BMP 04/10/20 15:11 04/10/20 15:11 INR, PTT INR 1.03 (0.83-1.09) 04/10/20 15:11 Assessment/Plan 64-year-old female history of Chiari malformation removed in 2005, hypertension, vertigo, diabetes, fibromyalgia, hypothyroidism, hyperlipidemia, migraine presents complaining of intermittent frontal and occipital headache x 3 days worsening over the past 2 days with nausea and [address]: BP: on metoprolol ER; add lisinopril 2.5 mg daily (HTN; DM). F/u neurological workup. TNI < 0.02. EKG: sinus bradycardia TSH WNL earlier this year. Stress MIBI 09/2018: no ischemia; normal LVEF. Multiple CAD risks; plan for further cardiac evaluation, including ECHO (2019 study noted dilated RV with normal RVEF; trivial pericardial effusion); may be done as outpatient.
--- OUTSIDE RECORDS SUMMARY | 2020-04-10 21:04 | XMS ---
:1955 Author Organization [facility] Care Team Providers Name Role Phone Teo Maldonado MD Unavailable Unavailable Joel, Itha MD Unavailable Unavailable Joel, Itha MD Unavailable Unavailable Joel, Itha MD Unavailable Unavailable Joel, Itha MD Unavailable Unavailable Joel, Itha MD Unavailable Unavailable Joel, Itha MD Unavailable Unavailable Joel, Itha MD Unavailable Unavailable Ojel, Itha MD Unavailable Unavailable Joel, Itha MD Unavailable Unavailable Joel, Itha MD Unavailable Unavailable Joel, Itha MD Unavailable Unavailable Joel, Itha MD Unavailable Unavailable Joel, Itha MD Unavailable Unavailable Joel, Itha MD Unavailable Unavailable Re-disclosure Warning The records that you are about to access may contain information from federally- assisted alcohol or drug abuse programs. If such information is present, then the following federally mandated warning applies: This information has been disclosed to you from records protected by federal confidentiality rules (42 CFR part 2). The federal rules prohibit you from making any further disclosure of this information unless further disclosure is expressly permitted by the written consent of the person to whom it pertains or as otherwise permitted by 42 CFR part 2. A general authorization for the release of medical or other information is NOT sufficient for this purpose. The Federal rules restrict any use of the information to criminally investigate or prosecute any alcohol or drug abuse patient.The records that you are about to access may contain highly sensitive health information, the redisclosure of which is protected by Article 27-F of the [facility] Public Health law. If you continue you may haveaccess to information: Regarding HIV / AIDS; Provided by facilities licensed or operated by the [facility] Office of Mental Health; or Provided by the [facility] Office for People With Developmental Disabilities. If such information is present, then the following [facility] mandated warning applies: This information has been disclosed to you from confidential records which are protected by state law. State law prohibits you from making any further disclosure of this information without the specific written consent of the person to whom it pertains, or as otherwise permitted by law. Any unauthorized further disclosure in violation of state law may result in a fine or care home sentence or both. A general authorization for the release of medical or other information is NOT sufficient authorization for further disclosure. Encounters Encounter Providers Location Date Indications Data Source(s ) Outpatient Attender: [facility] 03/14/2020 AUNG Maldonado MD 10:52:00 AM Hospital EDT - 03/14/2020 11:59:00 PM EDT Patient discharged. Insurance Providers Payer name Policy type / Policy ID Covered Covered libertarian's Policy Plan Coverage type libertarian ID relationship to Rosario Information rosario CIG [id number] HEALTHCARE O Cigna [facility] Commercial [id number] 1 [id number] COVID19 HRSA Commercial [id number] [facility] TST TRT FND Problems, Conditions, and Diagnoses Code Display Name Description Problem Type Effective Dates Data Source(s) Z03.818 Encounter for Encounter for Diagnosis 03/14/2020 Kei alexandre observation for observation for 10:52:[address] [facility] [place] suspected suspected exposure to other exposure to other biological agents biological agent, ruled out ruled out Results ID Date Data Source [id number] 03/20/2020 02:06:48 AM EDT [facility] System Name Value Range Interpretation Description Data Sup porting Code Source(s) Document(s ) 08577-7 NEGATIVE Testing Normal (applies COVID-19.. [place] was performed to non-numeric Health Syst em using Webber ID results) NOW COVID-19, an isothermal nucleic acid amplification technology for the qualitative detection of nucleic acid from the SARS-CoV-2 viral RNA in respiratory specimens. The ID NOW COVID-19 test has been approved by the Food and Drug Administration (FDA) under an Emergency Use Authorization for use by authorized laboratories. Reference Range: NEGATIVE . ID Date Data Source [id number] 03/14/2020 11:00:00 AM EDT [facility] Name Value Range Interpretation Code Description Data Renetta rce(s) Supporting Document(s ) COVID-19.. [facility] This lab was ordered by [facility] and reported by [facility]. Procedure
[2020-04-10] MEDS ORDERED: GABAPENTIN 300 MG CAPSULE PO SCH (22:00)
[2020-04-10] MEDS: ACETAMINOPHEN 325 MG TABLET (FP) PO PRN (22:02)
[2020-04-10] MEDS: ATORVASTATIN CA 20 MG TABLET (FP) PO SCH (22:02)
[2020-04-10] MEDS: ASPIRIN 81 MG CHEWABLE TABLETS PO SCH (22:03)
[2020-04-10] MEDS: HEPARIN NA (PORCINE) 5,000 UNITS/ML 1ML VIAL SQ SCH (22:03)
[2020-04-10] MEDS: INSULIN SLIDING SCALE (NOVOLOG) 1 VIAL SQ SCH (22:03)
[2020-04-10] MEDS: GABAPENTIN 300 MG CAPSULE PO PRN (22:03)
[2020-04-11 01:01] VITALS: BMI 32.8
[2020-04-11] MEDS: LEVOTHYROXINE NA 100 MCG TABLET (FP) PO SCH (06:48)
[2020-04-11] MEDS: ACETAMINOPHEN 325 MG TABLET (FP) PO PRN ×2 (06:48→16:17)
[2020-04-11] MEDS ORDERED: metFORMIN HCL 500 MG TABLET (FP) PO SCH (07:00)
[2020-04-11] MEDS: INSULIN SLIDING SCALE (NOVOLOG) 1 VIAL SQ SCH ×4 (07:07→21:26)
[2020-04-11 08:44] LABS: ANION GAP 6 MMOL/L (8-16); BLOOD UREA NITROGEN 25.7 mg/dL (7-18); CHLORIDE 111 mmol/L (98-107); CO2 27 mmol/L (21-32); CREATININE 1.3 mg/dL (0.55-1.3); GLUCOSE,RANDOM 98 mg/dL (74-106); POTASSIUM 4.6 mmol/L (3.5-5.1); SODIUM 144 mmol/L (136-145)
[2020-04-11 08:50] LABS: N-TERMINAL BNP 397.4 pg/ml (5-125)
[2020-04-11] MEDS: GABAPENTIN 300 MG CAPSULE PO PRN (10:02)
[2020-04-11] MEDS: HEPARIN NA (PORCINE) 5,000 UNITS/ML 1ML VIAL SQ SCH ×2 (10:02→21:24)
--- NOTE | 2020-04-11 11:39 | CON.NEURO ---
Consult Consult Specialty:: Marcy Referred by:: PCP - History of Present Illness History of Present Illness: This very pleasant 64-year-old right-handed woman with history of Chiari malformation status post release Hypertension aattention deficit Chronic neck pain Comes into the hospital with the speech difficulty difficulty expressing herselfneck pain and headache with episodes of altered sensorium - History Source History Provided By: Patient Limitations to Obtaining History: No Limitations - Past Medical History Cardio/Vascular: Yes: HTN, Hyperlipdemia ...: No Endocrine: Yes: Diabetes Mellitus - Alcohol/Substance Use Hx Alcohol Use: No - Smoking History Smoking history: Former smoker Have you smoked in the past 12 months: No Aproximately how many cigarettes per day: 0 If you are a former smoker, when did you quit?: 30 years ago Home Medications - Allergies Allergies/Adverse Reactions: Allergies Allergy/AdvReac Type Severity Reaction Status Date / Time No Known Drug Allergies Allergy Verified 04/10/20 14:45 - Home Medications Home Medications: Ambulatory Orders Levothyroxine [Synthroid -] 100 mcg PO DAILY@0700 #0 tablet 01/01/14 Metoprolol Succinate [Toprol XL -] 50 mg PO DAILY #0 tab.sr.24h 01/01/14 metFORMIN HCL [Glucophage -] 500 mg PO BIDAC #0 tablet 01/01/14 Gabapentin [Neurontin] 600 mg PO HS 09/27/18 Losartan Potassium 100 mg PO DAILY 09/27/18 Amlodipine Besylate 2.5 mg PO HS 04/10/20 Fenofibrate 48 mg PO HS 04/10/20 Levothyroxine [Synthroid -] 75 mg PO AM 04/10/20 Family Medical History Family History: Unremarkable Review of Systems - Review of Systems Musculoskeletal: reports: Joint Pain, Joint Swelling Neurological: reports: Dizziness, Headache, Incoordination, Numbness Physical Exam-Neuro Vital Signs: Vital Signs Temperature 98.0 F 04/11/20 09:20 Pulse Rate 66 04/11/20 09:20 Respiratory Rate 17 04/11/20 09:20 Blood Pressure 112/56 L 04/11/20 09:20 O2 Sat by Pulse Oximetry (%) 97 04/11/20 09:20 Constitutional: Yes: Well Nourished Neck: Yes: WNL Cardiovascular: Yes: WNL Labs: CBC, BMP 04/10/20 15:11 04/11/20 06:55 INR, PTT INR 1.03 (0.83-1.09) 04/10/20 15:11 - Neuro Exam Level Of Consciousness: Yes: Oriented to Person, Oriented to Place, Oriented to Time Eyes: Yes: PERRLA Speech: WNL Dominant Hand: Right DTR's: 1+ Left Bicep, 1+ Right Bicep, 1+ Left Tricep, 1+ Right Tricep Response to light touch: Normal Response to pain prick: Normal Response to temperature: Normal Response to vibration: Normal Motor Strength: 3/5: Left Arm, Right Arm, Left Leg, Right Leg Gait: Deferred Problem List - Problems (1) Headache Code(s): R51 - HEADACHE Qualifiers: Headache type: unspecified Headache chronicity pattern: acute headache Intractability: not intractable Qualified Code(s): R51 - Headache (2) Hyperthyroidism Code(s): E05.90 - THYROTOXICOSIS, UNSP WITHOUT THYROTOXIC CRISIS OR STORM (3) Chiari malformation Code(s): [id number] - Assessment/Plan follow-up with cardiology. 2. MRI of the brain with and without contrast. 4 precautions. Weight loss. DVT prophylaxis. Headache diary. Magnesium 400 mg once daily. 6. Fioricet when necessary headache. Thank you very much Dory Vidal M.D. [phone]
--- NOTE | 2020-04-11 11:47 | HP ---
Admitting History and Physical - Primary Care Physician PCP: Мария Reyes S - Admission Chief Complaint: ZEPEDA weakness History of Present Illness: 64-year-old female history of Chiari malformation removed in 2005, hypertension, vertigo, diabetes, fibromyalgia, hypothyroidism, hyperlipidemia, migraine presents complaining of intermittent frontal and occipital headache x 3 days worsening over the past 2 days with nausea and 2 episodes of vomiting. Also re ports feeling unbalanced when walking which is common for her except feels more unsteady over the past 2 days. Denies fever, chills, tinnitus, neck pain, back pain, chest pain, palpitations, cough, abdominal pain, diarrhea, urinary symptoms or any other complaints. Patient follows up regularly with Dr. David Vidal (last visit 3 days ago) had NL labs about 1 month ago Pt said she is on losartan 100 and metoprolol XL for HTN but she did not take toprol for few days (ran out) History Source: Patient Limitations to Obtaining History: No Limitations - Past Medical History Cardiovascular: Yes: HTN, Hyperlipdemia ...: No Endocrine: Yes: Diabetes Mellitus - Smoking History Smoking history: Former smoker Have you smoked in the past 12 months: No Aproximately how many cigarettes per day: 0 If you are a former smoker, when did you quit?: 30 years ago - Alcohol/Substance Use Hx Alcohol Use: No History of Substance Use: reports: None - Social History Usual Living Arrangement: Yes: Alone Do you think of yourself as: Straight/Heterosexual ADL: Independent History of Recent Travel: No Home Medications - Allergies Allergies/Adverse Reactions: Allergies Allergy/AdvReac Type Severity Reaction Status Date / Time No Known Drug Allergies Allergy Verified 04/10/20 14:45 - Home Medications Home Medications: Ambulatory Orders Levothyroxine [Synthroid -] 100 mcg PO DAILY@0700 #0 tablet 01/01/14 Metoprolol Succinate [Toprol XL -] 50 mg PO DAILY #0 tab.sr.24h 01/01/14 metFORMIN HCL [Glucophage -] 500 mg PO BIDAC #0 tablet 01/01/14 Gabapentin [Neurontin] 600 mg PO HS 09/27/18 Losartan Potassium 100 mg PO DAILY 09/27/18 Amlodipine Besylate 2.5 mg PO HS 04/10/20 Fenofibrate 48 mg PO HS 04/10/20 Levothyroxine [Synthroid -] 75 mg PO AM 04/10/20 Family Medical History Family History: Unremarkable Review of Systems - Review of Systems Constitutional: denies: Chills, Fever, Lethargy Eyes: denies: Blind Spots, Blurred Vision, Double Vision HENT: denies: Difficult Swallowing, Ear Pain, Epistaxis Neck: denies: Stiffness, Tenderness Cardiovascular: denies: Chest Pain, Palpitations, Shortness of Breath Respiratory: denies: Cough, SOB, SOB on Exertion Gastrointestinal: denies: Abdominal Pain, Constipation, Diarrhea, Vomiting Genitourinary: denies: Dysuria, Flank Pain Musculoskeletal: reports: Back Pain, Joint Pain, Other (chronic fbmyalgia pains) Integumentary: denies: Blister, Bruising, Rash Neurological: reports: Dizziness, Headache, Weakness (general). denies: Change in LOC, Change in Speech, Confusion, Numbness, Pre-Existing Deficit, Seizure, Syncope Hematology/Lymphatic: denies: Easily Bruised, Excessive Bleeding Psychiatric: reports: Altered Sleep Pattern, Anxiety, Depression. denies: Hallucinations, Panic, Paranoia, Suicidal Physical Examination Vital Signs: Vital Signs Temperature 98.0 F 04/11/20 09:20 Pulse Rate 66 04/11/20 09:20 Respiratory Rate 17 04/11/20 09:20 Blood Pressure 112/56 L 04/11/20 09:20 O2 Sat by Pulse Oximetry (%) 97 04/11/20 09:20 Constitutional: Yes: No Distress, Calm Eyes: Yes: Conjunctiva Clear HENT: Yes: Atraumatic Neck: Yes: Supple Cardiovascular: Yes: Regular Rate and Rhythm Respiratory: Yes: CTA Bilaterally Gastrointestinal: Yes: Soft. No: Tenderness Renal/: No: Hematuria Musculoskeletal: No: Joint Stiffness, Joint Swelling Extremities: No: Cold, Cool, Cyanosis Edema: No Integumentary: No: Rash, Venous Stasis Changes Neurological: Yes: Alert, Oriented ...Motor Strength: WNL Psychiatric: Yes: Alert, Oriented. No: Agitated, Suicidal Ideation Labs: CBC, BMP 04/10/20 15:11 04/11/20 06:55 Imaging - Results Chest X-ray: Report Reviewed Cat Scan: Report Reviewed Other: Report Reviewed Assessment/Plan 64-year-old female history of Chiari malformation removed in 2005, hypertension, vertigo, diabetes, fibromyalgia, hypothyroidism, hyperlipidemia, migraine presents complaining of intermittent frontal and occipital headache x 3 days worsening over the past 2 days with nausea and 2 episodes of vomiting. Also reports feeling unbalanced when walking which is common for her except feels more unsteady over the past 2 days. In ER her BP was borderline low despite being off toprol XL for few days and creat 1.8 from baseline 1.1-1.3 admitted for ARF low BP and intractable ZEPEDA hold antiHTN meds for now IVF; cardio, neuro and renal eval renal pelvic US f.u labs falls PFX d.w pt and staff
--- NOTE | 2020-04-11 11:57 | CON.NEP ---
Consult Consult Specialty:: Nephrology Referred by:: Dr. Reyes Reason for Consultation:: Acute kidney injury - History of Present Illness Chief Complaint: Headache History of Present Illness: This is a 64 year old woman with history of Chiari malformation s/p surgery in 2005, hypertension, diabetes mellitus, fibromyalgia, hypothyroidism, hyperlipidemia and headaches who presented with worsening headaches with nausea and vomiting and found to have Cr of 1.8. She denies any history of CKD but does have a brother who has ESRD and required a renal transplant. She feels better today and ZEPEDA is improved. No further nausea or vomiting noted. She is making urine. Tolerating oral diet. She said her appetite had been poor prior to admission. She denies flank pain but does say she had a remote history of kidney stones. No chest pain, fever, chills, N/V/D. - History Source History Provided By: Patient Limitations to Obtaining History: No Limitations - Past Medical History Cardio/Vascular: Yes: HTN, Hyperlipdemia ...: No Endocrine: Yes: Diabetes Mellitus - Alcohol/Substance Use Hx Alcohol Use: No - Smoking History Smoking history: Former smoker Have you smoked in the past 12 months: No Aproximately how many cigarettes per day: 0 If you are a former smoker, when did you quit?: 30 years ago Home Medications - Allergies Allergies/Adverse Reactions: Allergies Allergy/AdvReac Type Severity Reaction Status Date / Time No Known Drug Allergies Allergy Verified 04/10/20 14:45 - Home Medications Home Medications: Ambulatory Orders Levothyroxine [Synthroid -] 100 mcg PO DAILY@0700 #0 tablet 01/01/14 Metoprolol Succinate [Toprol XL -] 50 mg PO DAILY #0 tab.sr.24h 01/01/14 metFORMIN HCL [Glucophage -] 500 mg PO BIDAC #0 tablet 01/01/14 Gabapentin [Neurontin] 600 mg PO HS 09/27/18 Losartan Potassium 100 mg PO DAILY 09/27/18 Amlodipine Besylate 2.5 mg PO HS 04/10/20 Fenofibrate 48 mg PO HS 04/10/20 Levothyroxine [Synthroid -] 75 mg PO AM 04/10/20 Family Medical History Family History: Unremarkable Review of Systems - Review of Systems Constitutional: reports: No Symptoms Eyes: reports: No Symptoms HENT: reports: No Symptoms Neck: reports: No Symptoms Cardiovascular: reports: No Symptoms Respiratory: reports: No Symptoms Gastrointestinal: reports: No Symptoms Genitourinary: reports: No Symptoms Musculoskeletal: reports: No Symptoms Integumentary: reports: No Symptoms Neurological: reports: No Symptoms Endocrine: reports: No Symptoms Hematology/Lymphatic: reports: No Symptoms Nephrology Consult - Height Height: 5 ft 1 in - Weight Weight: 78.744 kg - BMI Body Mass Index (BMI): 32.8 - Lab Results CBC,BMP: CBC, BMP 04/10/20 15:11 04/11/20 06:55 Anion Gap: Anion Gap Anion Gap 6 MMOL/L (8-16) L 04/11/20 06:55 - Imaging Chest X-ray: Report Reviewed Ultrasound: Report Reviewed - Physical Examination Vital Signs: Vital Signs Temperature 98.0 F 04/11/20 09:20 Pulse Rate 66 04/11/20 09:20 Respiratory Rate 17 04/11/20 09:20 Blood Pressure 112/56 L 04/11/20 09:20 O2 Sat by Pulse Oximetry (%) 97 04/11/20 09:20 Constitutional: Yes: No Distress, Calm HENT: Yes: Atraumatic Neck: Yes: Supple Cardiovascular: Yes: Regular Rate and Rhythm Respiratory: Yes: Regular, CTA Bilaterally Gastrointestinal: Yes: Soft Renal/: No: Bladder Distention Extremities: No: Cold, Cool, Cyanosis Edema: No Neurological: Yes: Alert, Oriented Assessment/Plan 64 year old woman with history of Chiari malformation s/p surgery in 2005, hypertension, diabetes mellitus, fibromyalgia hypothyroidism, hyperlipidemia and headaches who presented with worsening headaches with nausea and vomiting and found to have Cr of 1.8. 1. Acute kidney injury likely from volume depletion +/- hemodynamic injury in se tting of ARB/RICHA 2. Headaches 3. Hypertension 4. DM 5. Hypothyroidism Check urine studies and renal US. Renal function improving indicating that likely cause of injury was volume depletion/hemodynamic injury Continue to hold RICHA/ARB for now Avoid NSAIDs and other nephrotoxins Continue isotonic saline at 2L daily up until tomorrow. Oral intake a tolerated Trend BP, still at goal currently off RICHA/AB Neurology following, for MRI Thank you Will follow Wilton Zee DO
[2020-04-11] MEDS ORDERED: ALBUTEROL SO4 HFA INHALER IH PRN (14:37)
--- NOTE | 2020-04-11 15:50 | PN ---
Progress Note, Physician Chief Complaint: Pt A&Ox3; pt denies chest pain or dyspnea. History of Present Illness: 64-year-old female with PMhistory of Chiari malformation removed in 2005, hypertension, vertigo, diabetes, fibromyalgia, hypothyroidism, hyperlipidemia, migraine headaches, obesity, now presents complaining of intermittent frontal and occipital headache x 3 days worsening over the past 2 days with nausea and 2 episodes of vomiting. Also reports feeling unbalanced when walking which is common for her except feels more unsteady over the past 2 days. Denies fever, chills, tinnitus, neck pain, back pain, chest pain, palpitations, cough, abdominal pain, diarrhea, urinary symptoms or any other complaints. Patient follows up regularly with Dr. Dory Vidal, neurology,(last visit 3 days ago) and PMD Dr. Мария Reyes. Sack Filler: Dr. Roger - Current Medication List Current Medications: Active Medications Acetaminophen (Tylenol -) 650 mg PO Q6H PRN PRN Reason: PAIN LEVEL 1-5 Last Admin: 04/11/20 06:48 Dose: 650 mg Documented by: Acetaminophen/Butalbital/Caffeine (Fioricet -) 0 tablet PO Q4H PRN PRN Reason: FEVER Albuterol Sulfate (Ventolin Hfa Inhaler -) 2 puff IH Q6H PRN PRN Reason: SHORTNESS OF BREATH/WHEEZING Aspirin (Asa -) 81 mg PO [facility] Last Admin: 04/10/20 22:03 Dose: 81 mg Documented by: Atorvastatin Calcium (Lipitor -) 20 mg PO [facility] Last Admin: 04/10/20 22:02 Dose: 20 mg Documented by: Gabapentin (Neurontin -) 300 mg PO BID PRN PRN Reason: PAIN LEVEL 6-10 Last Admin: 04/11/20 10:02 Dose: 300 mg Documented by: Heparin Sodium (Porcine) (Heparin -) 5,000 unit SQ BID ON LICENSE OF [facility] Last Admin: 04/11/20 10:02 Dose: 5,000 unit Documented by: Insulin Aspart (Novolog Vial Sliding Scale -) 1 vial SQ [facility]; Protocol Last Admin: 04/11/20 12:27 Dose: Not Given Documented by: Levothyroxine Sodium (Synthroid -) 100 mcg PO DAILY@0700 ON LICENSE OF [facility] Last Admin: 04/11/20 06:48 Dose: 100 mcg Documented by: Metoprolol Succinate (Toprol Xl -) 50 mg PO DAILY [facility] Last Admin: 04/11/20 10:02 Dose: Not Given Documented by: - Objective Vital Signs: Vital Signs Temperature 98.3 F 04/11/20 14:00 Pulse Rate 68 04/11/20 14:00 Respiratory Rate 18 04/11/20 14:00 Blood Pressure 126/72 04/11/20 14:00 O2 Sat by Pulse Oximetry (%) 97 04/11/20 14:00 Constitutional: Yes: Anxious, Obese Eyes: Yes: WNL HENT: Yes: WNL Neck: Yes: WNL Cardiovascular: Yes: S1, S2 Respiratory: Yes: WNL Gastrointestinal: Yes: WNL ...Rectal Exam: Yes: Deferred Genitourinary: No: Anuria Breast(s): Yes: WNL Musculoskeletal: Yes: Joint Stiffness Extremities: Yes: WNL Edema: No Peripheral Pulses WNL: Yes Integumentary: Yes: WNL Neurological: Yes: WNL ...Motor Strength: WNL Psychiatric: Yes: WNL Labs: CBC, BMP 04/10/20 15:11 04/11/20 06:55 INR, PTT INR 1.03 (0.83-1.09) 04/10/20 15:11 - ....Imaging Chest X-ray: Image Reviewed EKG: Image Reviewed Assessment/Plan 64-year-old female history of Chiari malformation removed in 2005, hypertension, vertigo, diabetes, fibromyalgia, hypothyroidism, hyperlipidemia, migraine presents complaining of intermittent frontal and occipital headache x 3 days worsening over the past 2 days with nausea and [address]: BP: on metoprolol ER; add lisinopril 2.5 mg daily (HTN; DM). F/u neurological workup. TNI < 0.02. EKG: sinus bradycardia TSH WNL earlier this year. Stress MIBI 09/2018: no ischemia; normal LVEF. Multiple CAD risks; plan for further cardiac evaluation, including ECHO (2019 study noted dilated RV with normal RVEF; trivial pericardial effusion); may be done as outpatient.
[2020-04-11] MEDS ORDERED: LISINOPRIL 5 MG TABLET PO ONE (15:53)
[2020-04-11] MEDS: SODIUM CHLORIDE 1,000 ML IV SCH (16:45)
[2020-04-11 18:01] LABS: PH,URINE 7.5 (5.0-8.0); URINE APPEARANCE CLEAR; URINE BILIRUBIN NEGATIVE (NEGATIVE); URINE COLOR YELLOW; URINE GLUCOSE (UA) NEGATIVE (NEGATIVE); URINE KETONE NEGATIVE (NEGATIVE); URINE LEUK ESTERASE NEGATIVE (NEGATIVE); URINE NITRITE NEGATIVE (NEGATIVE); URINE PROTEIN NEGATIVE (NEGATIVE); URINE UROBILINOGEN 0.2 mg/dL (0.2-1.0)
[2020-04-11] MEDS ORDERED: LORazepam 2 MG/ML SDV VIAL IVPUSH ONE (18:16)
[2020-04-11] MEDS: ASPIRIN 81 MG CHEWABLE TABLETS PO SCH (21:25)
[2020-04-11] MEDS: ATORVASTATIN CA 20 MG TABLET (FP) PO SCH (21:25)
[2020-04-12] MEDS: ACETAMINOPHEN/CAFFEINE/BUTALBITAL 1 TAB PO PRN ×2 (05:34→10:03)
[2020-04-12] MEDS: SODIUM CHLORIDE 1,000 ML IV SCH (05:38)
[2020-04-12] MEDS: INSULIN SLIDING SCALE (NOVOLOG) 1 VIAL SQ SCH ×2 (06:33→11:55)
[2020-04-12] MEDS: LEVOTHYROXINE NA 100 MCG TABLET (FP) PO SCH (06:33)
--- NOTE | 2020-04-12 08:07 | DS ---
Physical Examination Vital Signs: Vital Signs Temperature 97.6 F 04/12/20 06:00 Pulse Rate 66 04/12/20 06:00 Respiratory Rate 18 04/12/20 06:00 Blood Pressure 149/77 04/12/20 06:00 O2 Sat by Pulse Oximetry (%) 98 04/12/20 06:00 Findings/Remarks: still had ZEPEDA last night her typical migraine pattern no fever; BP better; started low dose lisinopril; off losartan could not do MRI despite xanax and inj ativan; d/w neuro dr Vidal OK to do do it outpt renal US negative; creat improved; to DC home and close f.u within 1 week - f/u PCP cardio neuro and renal as advised Constitutional: Yes: No Distress, Calm Eyes: Yes: Conjunctiva Clear HENT: Yes: Atraumatic Neck: Yes: Supple Cardiovascular: Yes: Regular Rate and Rhythm Respiratory: Yes: CTA Bilaterally Gastrointestinal: Yes: Soft. No: Tenderness Renal/: No: Hematuria Musculoskeletal: No: Joint Stiffness, Joint Swelling Extremities: No: Cold, Cool, Cyanosis Edema: No Integumentary: No: Rash, Venous Stasis Changes Neurological: Yes: Alert, Oriented ...Motor Strength: WNL Psychiatric: Yes: Alert, Oriented. No: Agitated, Suicidal Ideation Labs: CBC, BMP 04/10/20 15:11 Discharge Summary Problems reviewed: Yes Reason For Visit: HEADACHE Current Active Problems Headache (Acute) Procedures: Principal: 64 YOF HTN DM Fibromyalgia migraines admitted with intractable ZEPEDA, low BP and ARF Other Procedures: IVF; ARB held; headt CT and renal US negative; seen by neuro logy cardiology and renal; Hospital Course: improved with above; DC home and close f/u Condition: Improved - Instructions Diet, Activity, Other Instructions: f.u PCP cardiology neurtology and renal drs within 1-2 weeks; good po hydration; stop losartan take lisinopril (new) continue Toprol XL RTER if wore or recurrent; brain open MRI outpt Referrals: Мария Reyes [Primary Care Provider] - Dory Vidal MD [Staff Physician] - Levi Roger MD [Staff Physician] - Wilton Zee MD [Staff Physician] - Disposition: HOME - Home Medications Comprehensive Discharge Medication List: Ambulatory Orders Levothyroxine [Synthroid -] 100 mcg PO DAILY@0700 #0 tablet 01/01/14 Metoprolol Succinate [Toprol XL -] 50 mg PO DAILY #0 tab.sr.24h 01/01/14 metFORMIN HCL [Glucophage -] 500 mg PO BIDAC #0 tablet 01/01/14 Gabapentin [Neurontin] 600 mg PO HS 09/27/18 Losartan Potassium 100 mg PO DAILY 09/27/18 Amlodipine Besylate 2.5 mg PO HS 04/10/20 Fenofibrate 48 mg PO HS 04/10/20 Levothyroxine [Synthroid -] 75 mg PO AM 04/10/20
[2020-04-12 08:26] LABS: BLOOD UREA NITROGEN 26.7 mg/dL (7-18); CALCIUM 9.4 mg/dL (8.5-10.1); CREATININE 1.2 mg/dL (0.55-1.3); MAGNESIUM 1.5 mg/dL (1.8-2.4); PHOSPHOROUS 3.1 mg/dL (2.5-4.9); POTASSIUM 4.6 mmol/L (3.5-5.1)
[2020-04-12 09:06] VITALS: BP 141/83; PULSE 59; TEMP 98
[2020-04-12] MEDS ORDERED: LISINOPRIL 5 MG TABLET PO SCH (10:00)
[2020-04-12] MEDS: HEPARIN NA (PORCINE) 5,000 UNITS/ML 1ML VIAL SQ SCH (10:17)
[2020-04-12] MEDS: GABAPENTIN 300 MG CAPSULE PO PRN (10:20)
--- NOTE | 2020-04-12 12:42 | PN ---
Progress Note, Physician History of Present Illness: 64-year-old female history of Chiari malformation removed in 2005, hypertension, vertigo, diabetes, fibromyalgia, hypothyroidism, hyperlipidemia, migraine presents complaining of intermittent frontal and occipital headache x 3 days worsening over the past 2 days with nausea and 2 episodes of vomiting. Also reports feeling unbalanced when walking which is common for her except feels more unsteady over the past 2 days. Denies fever, chills, tinnitus, neck pain, back pain, chest pain, palpitations, cough, abdominal pain, diarrhea, urinary symptoms or any other complaints. Patient follows up regularly with Dr. David Vidal (last visit 3 days ago) and pmd Dr. Мария Reyes. PSHx: appy tonsillectomy cataract surgery (R eye 03/16/20, L eye 09/16/19) BTL carpal tunnel repair prolapsed bladder hemorrhoidectomy - Objective Vital Signs: Vital Signs Temperature 98 F 04/12/20 09:04 Pulse Rate 59 L 04/12/20 09:04 Respiratory Rate 16 04/12/20 09:04 Blood Pressure 141/83 04/12/20 09:04 O2 Sat by Pulse Oximetry (%) 96 04/12/20 09:04 Eyes: Yes: WNL, Conjunctiva Clear, EOM Intact HENT: Yes: WNL, Atraumatic, Normocephalic Neck: Yes: WNL, Supple, Trachea Midline Cardiovascular: Yes: WNL, Regular Rate and Rhythm Respiratory: Yes: WNL, Regular, CTA Bilaterally Gastrointestinal: Yes: WNL, Normal Bowel Sounds Genitourinary: Yes: WNL Musculoskeletal: Yes: WNL Extremities: Yes: WNL Edema: No Integumentary: Yes: WNL Labs: CBC, BMP 04/10/20 15:11 04/12/20 07:23 INR, PTT INR 1.03 (0.83-1.09) 04/10/20 15:11 Assessment/Plan 64-year-old female history of Chiari malformation removed in 2005, hypertension, vertigo, diabetes, fibromyalgia, hypothyroidism, hyperlipidemia, migraine presents complaining of intermittent frontal and occipital headache x 3 days worsening over the past 2 days with nausea and [address]: BP: on metoprolol ER; add lisinopril 2.5 mg daily (HTN; DM). F/u neurological workup. TNI < 0.02. EKG: sinus bradycardia TSH WNL earlier this year. Stress MIBI 09/2018: no ischemia; normal LVEF. Multiple CAD risks; plan for further cardiac evaluation, including ECHO (2019 study noted dilated RV with normal RVEF; trivial pericardial effusion); may be done as outpatient.
[2020-04-12] MEDS ORDERED: FENOFIBRIC ACID 45 MG CAP PO SCH (22:00)
[2020-04-12] MEDS ORDERED: LOSARTAN POTASSIUM 50 MG TABLET PO SCH (22:00)
== END 2020-04-12 12:04 | disposition home or self-care (01) | DRG 103 ==
LOC: JER 14:23 → JERBED 18:39 → J5S 21:15
PROVIDERS: ADMIT Internal Medicine; ATTEND Internal Medicine
DX: G43.909 Migraine, unspecified, not intractable, without status migrainosus (principal); N17.9 Acute kidney failure, unspecified; I10 Essential (primary) hypertension; E11.9 Type 2 diabetes mellitus without complications; E03.9 Hypothyroidism, unspecified; E78.5 Hyperlipidemia, unspecified; M79.7 Fibromyalgia; R42 Dizziness and giddiness
CPT/HCPCS: 36415; 70450-TC; 76775-TC; 76856-TC; 80048; 80053; 81003; 82085; 82550; 82565; 82607; 82962; 83735; 83880; 84100; 84156; 84300; 84484; 85025; 85610; 85651; 86140; 87205; 99285-25; J1644; U0003

== ENCOUNTER 2022-09-21 14:34 | Emergency (ER) | payer OTHER ==
[2022-09-21 15:02] VITALS: BP 148/74; PULSE 87; RESP 20; TEMP 99.2; BMI 33.0
[2022-09-21] MEDS ORDERED: SODIUM CHLORIDE 0.9% 500 ML INFUS.BAG IV ONE (17:04)
[2022-09-21] MEDS ORDERED: ACETAMINOPHEN 1000 MG/100 ML BAG IVPB ONE (17:34)
[2022-09-21] MEDS: ALBUTEROL SO4 2.5/IPRATROPIUM 0.5 INH SOL 3 ML VIAL.NEB. NEB SCH ×2 (17:45→18:00)
[2022-09-21] MEDS ORDERED: ALBUTEROL SO4 2.5/IPRATROPIUM 0.5 INH SOL 3 ML VIAL.NEB. NEB ONE ×2 (17:51→17:59)
[2022-09-21] MEDS ORDERED: ACETAMINOPHEN INJECTION 100 ML IVPB ONE ×2 (17:51→17:59)
[2022-09-21 18:25] LABS: BASO % 0.5 % (0-2.0); EOS % 0.5 % (0-4.5); HEMATOCRIT 38.1 % (32.4-45.2); HEMOGLOBIN 12.1 GM/dL (10.7-15.3); LYMPH % 17.5 % (8-40); MCH 25.8 pg (25.7-33.7); MCHC 31.8 g/dl (32.0-36.0); MEAN CELL VOLUME 81.2 fl (80-96); MEAN PLT VOLUME 7.9 fl (7.5-11.1); MONO % 6.1 % (3.8-10.2); NEUT % 75.4 % (42.8-82.8); PLATELET COUNT 242 10^3/uL (134-434); RBC 4.69 M/mm3 (3.60-5.2); RDW 15.4 % (11.6-15.6); WHITE BLOOD COUNT 10.1 K/mm3 (4.0-10.0)
[2022-09-21 18:46] LABS: ALBUMIN 4.2 g/dl (3.4-5.0); BLOOD UREA NITROGEN 27.5 mg/dL (7-18); CALCIUM 9.5 mg/dL (8.5-10.1)
[2022-09-21 18:49] LABS: CREATININE 1.1 mg/dL (0.55-1.3)
[2022-09-21 18:51] LABS: BILIRUBIN,TOTAL 0.3 mg/dL (0.2-1)
== END 2022-09-21 19:49 | disposition home or self-care (01) ==
LOC: JERFT 14:34 → JER 14:34 → JERFT 19:49
PROC: 3E0333Z Introduction of Anti-inflammatory into Peripheral Vein, Percutaneous Approach (ICD-10-PCS; principal; 2022-09-21)
PROC: 3E0F7GC Introduction of Other Therapeutic Substance into Respiratory Tract, Via Natural or Artificial Opening (ICD-10-PCS; 2022-09-21)
DX: U07.1 COVID-19 (principal)
CPT/HCPCS: 0241U-QW; 36415; 71046-TC-FY; 80053; 85025; 93005; 93010; 99285-25

== ENCOUNTER 2023-02-02 18:00 | Inpatient (IN) | payer OTHER ==
[2023-02-02] MEDS ORDERED: KETOROLAC TROMETHAMINE 15 MG/ML VIAL IVPUSH ONE (21:37)
[2023-02-02] MEDS ORDERED: ACETAMINOPHEN 1000 MG/100 ML BAG IVPB ONE (21:50)
[2023-02-02] MEDS ORDERED: ACETAMINOPHEN INJECTION 100 ML IVPB ONE (21:52)
[2023-02-02 21:56] LABS: BASO % 0.9 % (0-2.0); EOS % 1.7 % (0-4.5); HEMATOCRIT 39.2 % (32.4-45.2); HEMOGLOBIN 12.6 GM/dL (10.7-15.3); LYMPH % 36.3 % (8-40); MCHC 32.1 g/dl (32.0-36.0); MEAN CELL VOLUME 81.2 fl (80-96); MEAN PLT VOLUME 8.5 fl (7.5-11.1); MONO % 6.7 % (3.8-10.2); NEUT % 54.4 % (42.8-82.8); PLATELET COUNT 232 10^3/uL (134-434); RBC 4.83 M/mm3 (3.60-5.2); RDW 15.4 % (11.6-15.6); WHITE BLOOD COUNT 9.9 K/mm3 (4.0-10.0)
[2023-02-02 21:59] LABS: EPI CELLS 16 /uL (0-25.1); HYALINE CASTS 1 /uL (0-3.1); URINE APPEARANCE CLEAR; URINE BACTERIA 18 /uL (0-1359); URINE BILIRUBIN NEGATIVE (NEGATIVE); URINE COLOR YELLOW; URINE GLUCOSE (UA) NEGATIVE (NEGATIVE); URINE KETONE NEGATIVE (NEGATIVE); URINE LEUK ESTERASE TRACE (NEGATIVE); URINE NITRITE NEGATIVE (NEGATIVE); URINE PROTEIN NEGATIVE (NEGATIVE); URINE RBC 222 /uL (0-23.9); URINE UROBILINOGEN 0.2 mg/dL (0.2-1.0); URINE WBC 20 /uL (0-25.8)
[2023-02-02 22:44] LABS: POTASSIUM 4.9 mmol/L (3.5-5.1)
[2023-02-02 22:47] LABS: CALCIUM 9.8 mg/dL (8.5-10.1)
[2023-02-02 22:48] LABS: ALBUMIN 4.3 g/dl (3.4-5.0)
[2023-02-02 22:51] LABS: CREATININE 1.9 mg/dL (0.55-1.3)
[2023-02-02 22:53] LABS: BILIRUBIN,TOTAL 0.4 mg/dL (0.2-1); TOT PROT 8.1 g/dl (6.4-8.2)
[2023-02-02] MEDS ORDERED: LACTATED RINGERS SOLUTION 1,000 ML/1,000 ML INFUS.BAG IV SCH (23:30)
[2023-02-03] MEDS ORDERED: morphine CARPU-JECT 4 MG/1 ML DISP.SYRIN IVPUSH ONE (05:00)
[2023-02-03 06:00] VITALS: BMI 32.0
[2023-02-03] MEDS ORDERED: ALBUTEROL SO4 HFA INHALER IH PRN (07:53)
[2023-02-03] MEDS ORDERED: ACETAMINOPHEN 325 MG TABLET (FP) PO PRN (07:53)
[2023-02-03] MEDS ORDERED: oxyCODONE HCL 5 MG TABLET PO PRN (07:57)
[2023-02-03] MEDS: SODIUM CHLORIDE 1,000 ML IV SCH (10:09)
[2023-02-03] MEDS: DOCUSATE SODIUM 100 MG CAPSULE (FP) PO SCH (10:10)
[2023-02-03] MEDS ORDERED: ACETAMINOPHEN 1000 MG/100 ML BAG IVPB ONE (10:15)
[2023-02-03] MEDS: CEFTRIAXONE 1 GM in DEXTROSE 5%-WATER - 50 ML IVPB SCH (10:33)
[2023-02-03] MEDS: INSULIN SLIDING SCALE (NOVOLOG) 1 VIAL SQ SCH ×3 (11:31→22:22)
[2023-02-03] MEDS ORDERED: ACETAMINOPHEN 1000 MG/100 ML BAG IVPB PRN (12:13)
[2023-02-03 17:27] LABS: URINE APPEARANCE CLEAR; URINE BILIRUBIN NEGATIVE (NEGATIVE); URINE COLOR YELLOW; URINE GLUCOSE (UA) NEGATIVE (NEGATIVE); URINE KETONE NEGATIVE (NEGATIVE); URINE LEUK ESTERASE NEGATIVE (NEGATIVE); URINE NITRITE NEGATIVE (NEGATIVE); URINE PROTEIN NEGATIVE (NEGATIVE); URINE UROBILINOGEN 0.2 mg/dL (0.2-1.0)
[2023-02-03] MEDS: ACETAMINOPHEN 1000 MG/100 ML BAG IVPB PRN (22:19)
[2023-02-03] MEDS: GABAPENTIN 300 MG CAPSULE PO SCH (22:20)
[2023-02-03] MEDS: HEPARIN NA (PORCINE) 5,000 UNITS/ML 1ML VIAL SQ SCH (22:21)
[2023-02-03] MEDS: ASPIRIN 81 MG CHEWABLE TABLETS PO SCH ×2 (22:21→22:24)
[2023-02-03] MEDS: ATORVASTATIN CA 20 MG TABLET (FP) PO SCH (22:21)
[2023-02-04] MEDS: INSULIN SLIDING SCALE (NOVOLOG) 1 VIAL SQ SCH ×4 (06:40→21:22)
[2023-02-04] MEDS: ACETAMINOPHEN 1000 MG/100 ML BAG IVPB PRN ×3 (08:37→22:50)
[2023-02-04] MEDS: SODIUM CHLORIDE 1,000 ML IV SCH ×2 (09:14→14:53)
[2023-02-04] MEDS: DOCUSATE SODIUM 100 MG CAPSULE (FP) PO SCH ×2 (09:58→10:07)
[2023-02-04] MEDS: CEFTRIAXONE 1 GM in DEXTROSE 5%-WATER - 50 ML IVPB SCH (09:58)
[2023-02-04] MEDS: HEPARIN NA (PORCINE) 5,000 UNITS/ML 1ML VIAL SQ SCH ×2 (09:58→21:21)
[2023-02-04 10:33] LABS: BASO % 0.9 % (0-2.0); HEMATOCRIT 32.6 % (32.4-45.2); HEMOGLOBIN 10.5 GM/dL (10.7-15.3); LYMPH % 48.5 % (8-40); MCH 26.4 pg (25.7-33.7); MCHC 32.1 g/dl (32.0-36.0); MEAN PLT VOLUME 9.7 fl (7.5-11.1); MONO % 5.5 % (3.8-10.2); NEUT % 42.1 % (42.8-82.8); PLATELET COUNT 170 10^3/uL (134-434); RBC 3.98 M/mm3 (3.60-5.2); RDW 14.7 % (11.6-15.6); WHITE BLOOD COUNT 4.6 K/mm3 (4.0-10.0)
[2023-02-04 10:48] LABS: BLOOD UREA NITROGEN 29.3 mg/dL (7-18); CALCIUM 8.6 mg/dL (8.5-10.1)
[2023-02-04 10:51] LABS: CREATININE 1.2 mg/dL (0.55-1.3)
[2023-02-04 10:54] LABS: BILIRUBIN,TOTAL 0.5 mg/dL (0.2-1)
[2023-02-04 11:05] LABS: TOT PROT 5.9 g/dl (6.4-8.2)
[2023-02-04 18:37] VITALS: RESP 18
[2023-02-04] MEDS: FENOFIBRIC ACID 45 MG CAP PO SCH ×2 (20:13→21:22)
[2023-02-04] MEDS: ATORVASTATIN CA 20 MG TABLET (FP) PO SCH (21:21)
[2023-02-04] MEDS: ASPIRIN 81 MG CHEWABLE TABLETS PO SCH (21:21)
[2023-02-04] MEDS: GABAPENTIN 300 MG CAPSULE PO SCH (21:22)
[2023-02-04] MEDS ORDERED: LOSARTAN POTASSIUM 50 MG TABLET PO ONE (22:00)
[2023-02-05] MEDS: SODIUM CHLORIDE 1,000 ML IV SCH ×2 (04:18→09:10)
[2023-02-05] MEDS: ACETAMINOPHEN 1000 MG/100 ML BAG IVPB PRN ×3 (04:37→18:30)
[2023-02-05] MEDS: LEVOTHYROXINE NA 100 MCG TABLET (FP) PO SCH ×2 (06:20→09:10)
[2023-02-05] MEDS: INSULIN SLIDING SCALE (NOVOLOG) 1 VIAL SQ SCH ×4 (06:21→21:44)
[2023-02-05] MEDS: CEFTRIAXONE 1 GM in DEXTROSE 5%-WATER - 50 ML IVPB SCH (11:40)
[2023-02-05] MEDS: HEPARIN NA (PORCINE) 5,000 UNITS/ML 1ML VIAL SQ SCH ×2 (11:42→21:44)
[2023-02-05] MEDS: DOCUSATE SODIUM 100 MG CAPSULE (FP) PO SCH (11:47)
[2023-02-05] MEDS: LISINOPRIL 5 MG TABLET PO SCH (14:15)
[2023-02-05] MEDS: amLODIPine BESYLATE 10 MG TABLET (FP) PO SCH (14:15)
[2023-02-05] MEDS: traMADol HCL 50 MG TABLET PO PRN ×2 (14:15→21:43)
[2023-02-05] MEDS: metFORMIN HCL 500 MG TABLET (FP) PO SCH (17:59)
[2023-02-05] MEDS: ASPIRIN 81 MG CHEWABLE TABLETS PO SCH ×2 (21:43→21:47)
[2023-02-05] MEDS: ATORVASTATIN CA 20 MG TABLET (FP) PO SCH (21:43)
[2023-02-05] MEDS: GABAPENTIN 300 MG CAPSULE PO SCH (21:43)
[2023-02-05] MEDS: FENOFIBRIC ACID 45 MG CAP PO SCH (21:57)
[2023-02-06] MEDS: ACETAMINOPHEN 1000 MG/100 ML BAG IVPB PRN ×3 (00:30→18:57)
[2023-02-06] MEDS: metFORMIN HCL 500 MG TABLET (FP) PO SCH ×2 (06:16→17:46)
[2023-02-06] MEDS: INSULIN SLIDING SCALE (NOVOLOG) 1 VIAL SQ SCH ×4 (06:16→21:58)
[2023-02-06] MEDS: LEVOTHYROXINE NA 100 MCG TABLET (FP) PO SCH (06:17)
[2023-02-06 09:29] LABS: BASO % 0.7 % (0-2.0); EOS % 2.7 % (0-4.5); HEMATOCRIT 36.2 % (32.4-45.2); HEMOGLOBIN 11.8 GM/dL (10.7-15.3); LYMPH % 44.8 % (8-40); MCH 26.3 pg (25.7-33.7); MCHC 32.6 g/dl (32.0-36.0); MEAN CELL VOLUME 80.6 fl (80-96); MEAN PLT VOLUME 8.9 fl (7.5-11.1); MONO % 6.3 % (3.8-10.2); NEUT % 45.5 % (42.8-82.8); PLATELET COUNT 216 10^3/uL (134-434); RBC 4.49 M/mm3 (3.60-5.2); RDW 14.9 % (11.6-15.6); WHITE BLOOD COUNT 6.3 K/mm3 (4.0-10.0)
[2023-02-06 09:41] LABS: POTASSIUM 4.7 mmol/L (3.5-5.1)
[2023-02-06 09:50] LABS: ALBUMIN 3.4 g/dl (3.4-5.0)
[2023-02-06 09:51] LABS: BLOOD UREA NITROGEN 21.2 mg/dL (7-18)
[2023-02-06 09:53] LABS: CALCIUM 9.3 mg/dL (8.5-10.1); CREATININE 1.2 mg/dL (0.55-1.3)
[2023-02-06 09:55] LABS: BILIRUBIN,TOTAL 0.1 mg/dL (0.2-1); TOT PROT 6.9 g/dl (6.4-8.2)
[2023-02-06] MEDS: CEFTRIAXONE 1 GM in DEXTROSE 5%-WATER - 50 ML IVPB SCH (11:11)
[2023-02-06] MEDS: LISINOPRIL 5 MG TABLET PO SCH (11:12)
[2023-02-06] MEDS: amLODIPine BESYLATE 10 MG TABLET (FP) PO SCH (11:13)
[2023-02-06] MEDS: HEPARIN NA (PORCINE) 5,000 UNITS/ML 1ML VIAL SQ SCH ×2 (11:15→21:53)
[2023-02-06] MEDS: DOCUSATE SODIUM 100 MG CAPSULE (FP) PO SCH (11:15)
[2023-02-06] MEDS: traMADol HCL 50 MG TABLET PO PRN ×2 (12:35→18:56)
[2023-02-06] MEDS: ATORVASTATIN CA 20 MG TABLET (FP) PO SCH (21:52)
[2023-02-06] MEDS: GABAPENTIN 300 MG CAPSULE PO SCH (21:53)
[2023-02-06] MEDS: ASPIRIN 81 MG CHEWABLE TABLETS PO SCH (21:54)
[2023-02-06] MEDS: FENOFIBRIC ACID 45 MG CAP PO SCH (21:57)
[2023-02-07] MEDS: traMADol HCL 50 MG TABLET PO PRN ×2 (01:08→08:36)
[2023-02-07] MEDS: ACETAMINOPHEN 1000 MG/100 ML BAG IVPB PRN ×2 (01:11→08:37)
[2023-02-07] MEDS: INSULIN SLIDING SCALE (NOVOLOG) 1 VIAL SQ SCH ×2 (06:00→11:36)
[2023-02-07] MEDS: metFORMIN HCL 500 MG TABLET (FP) PO SCH (06:00)
[2023-02-07] MEDS: LEVOTHYROXINE NA 100 MCG TABLET (FP) PO SCH (06:01)
[2023-02-07] MEDS: LISINOPRIL 5 MG TABLET PO SCH (10:51)
[2023-02-07] MEDS: CEFTRIAXONE 1 GM in DEXTROSE 5%-WATER - 50 ML IVPB SCH (10:51)
[2023-02-07] MEDS: amLODIPine BESYLATE 10 MG TABLET (FP) PO SCH (10:51)
[2023-02-07] MEDS: DOCUSATE SODIUM 100 MG CAPSULE (FP) PO SCH (11:02)
[2023-02-07] MEDS: HEPARIN NA (PORCINE) 5,000 UNITS/ML 1ML VIAL SQ SCH (11:02)
[2023-02-07 11:28] VITALS: BP 123/72; PULSE 76; TEMP 98.1
== END 2023-02-07 13:37 | disposition home or self-care (01) | DRG 694 ==
LOC: JER 18:00 → JERBED 23:14 → J5S 02-03 05:45
PROVIDERS: ADMIT Internal Medicine; ATTEND Internal Medicine
DX: N13.2 Hydronephrosis with renal and ureteral calculous obstruction (principal); N13.4 Hydroureter; N17.9 Acute kidney failure, unspecified; N23 Unspecified renal colic; E03.9 Hypothyroidism, unspecified; I12.9 Hypertensive chronic kidney disease with stage 1 through stage 4 chronic kidney disease, or unspecified chronic kidney disease; E11.22 Type 2 diabetes mellitus with diabetic chronic kidney disease; E05.90 Thyrotoxicosis, unspecified without thyrotoxic crisis or storm; Z68.32 Body mass index [BMI] 32.0-32.9, adult; N18.9 Chronic kidney disease, unspecified; E78.5 Hyperlipidemia, unspecified; K21.9 Gastro-esophageal reflux disease without esophagitis; G43.909 Migraine, unspecified, not intractable, without status migrainosus; M79.7 Fibromyalgia; R63.0 Anorexia
CPT/HCPCS: 36415; 74176-TC; 76775-TC; 76830-TC; 76856-TC; 80048; 80053; 81003; 82570; 82962; 84300; 85025; 87086; 93005; 93010; 99285-25; J1644